=== PATIENT | female | born 1955 | race Caucasian/White ===

== ENCOUNTER → 2016-06-21 | Outpatient (CLI) | payer MEDICAID, OTHER ==
[2016-06-21 08:31] LABS: ANION GAP 12 MEQ/L (8-16); BLOOD UREA NITROGEN 14 MG/DL (7-18); CALCIUM LEVEL 8.9 MG/DL (8.5-10.1); CARBON DIOXIDE LEVEL 24 MEQ/L (21-32); CHLORIDE LEVEL 106 MEQ/L (98-107); CHOLESTEROL LEVEL 180 MG/DL (<200); CREATININE FOR GFR 0.68 MG/DL (0.55-1.02); GLOMERULAR FILTRATION RATE > 60.0 (>51); GLUCOSE, FASTING 109 MG/DL (70-105); POTASSIUM SERUM 4.4 MEQ/L (3.5-5.1); SODIUM LEVEL 142 MEQ/L (136-145); TRIGLYCERIDES LEVEL 275 MG/DL (<150)
== END | disposition home or self-care (01) ==
LOC: M LAB 06:14
PROVIDERS: ATTEND Physician Assistant Medical
DX: E11.9 Type 2 diabetes mellitus without complications (principal); E78.2 Mixed hyperlipidemia

== ENCOUNTER → 2016-08-09 | Outpatient (CLI) | payer MEDICAID, OTHER ==
--- NOTE | 2016-08-13 23:19 | ECWPNPC ---
PATIENT NAME: VANGIE OJEDA : 1955 GENDER: FEMALE VISIT DATE: 08/09/2016 DISCHARGE DATE: 08/09/16 0947 VISIT LOCKED DATE TIME: PHYSICIAN: AUGIE GREGORY RESOURCE: AUGIE GREGORY REASON FOR APPOINTMENT 1. RIGHT HIP HISTORY OF PRESENT ILLNESS HISTORY OF PRESENT ILLNESS: PAIN THE PATIENT DESCRIBES THE PAIN... 60 YEAR OLD FEMALE PATIENT WITH HISTORY OF CHRONIC RIGHT HIP PAIN. PATIENT DESCRIBES THE PAIN STABBING IN THE BACK OF THE HIP AND IT COMES AND GOES WITH A PAIN SCORE OF 5/10 ON TODAY'S VISIT. PATIENT STATES THAT THE DAY GOES ON HER PAIN GET WORST. PATIENT RECEIVED A RIGHT HIP INJECTION ON 02/21/2017 AND STATES THAT SHE HAD REALLY GOOD PAIN RELIEF FOR ABOUT 4 MONTHS, BUT NOW THE PAIN IS SLOWLY RETURNING TO IT POST PROCEDURE LEVELS. PATIENT INQUIRED WHETHER SHE COULD GET ANOTHER ONE. PATIENT DENIES UNEXPLAINABLE WEIGHT LOSS, FEVER, CHILLS, NEW CHANGES ON HER URINARY OR BOWEL CONTROL. FALL RISK SCREENING: SCREENING :NO FALLS IN THE PAST YEAR CURRENT MEDICATIONS TAKING LISINOPRIL 40 MG TABLET 1 TABLET ORALLY ONCE A DAY TAKING HYDROCHLOROTHIAZIDE 25 MG TABLET 1 TABLET ORALLY ONCE A DAY TAKING TAMOXIFEN CITRATE 20 MG TABLET 1 TAB(S) ORALLY ONCE A DAY TAKING FISH OIL 1000 MG CAPSULE 1 CAPSULE ORALLY TWICE A DAY TAKING VITAMIN D 2000 UNIT TABLET 1 TABLET ORALLY ONCE A DAY TAKING METFORMIN HCL 1000 MG TABLET 1 TABLET WITH MEALS P.O. TWICE A DAY TAKING MELOXICAM 7.5 MG TABLET 2 TABLET ORALLY ONCE A DAY TAKING HYDROCODONE-ACETAMINOPHEN 325-5 MG TABLET 1 TABLET NEEDED ORALLY EVERY 6 HRS TAKING PRAVASTATIN 40 40MG TABLET 1 TAB ORAL ONCE DAILY TAKING ZOLOFT 50 MG TABLET 1 TABLET ORALLY ONCE A DAY DISCONTINUED ALEVE 200 MG TABLET 1 TABLET NEEDED P.O. EVERY 12 HRS MEDICATION LIST REVIEWED AND RECONCILED WITH THE PATIENT PAST MEDICAL HISTORY HYPERTENSION HYPERLIPIDEMIA SCIATICA/ SPINAL STENOSIS BREAST CA-INVASIVE DUCTAL, RIGHT BREAST, WITH NEG SENTINEL LYMPH NODE BX, 1.7.CM, NUCLEAR GR II, ER+STRONG, MT+STRONG, HER 2 FRANCHESKA NEG (1+), TX WITH RADIATION AND TAMOXIFEN ARTHRITIS OF KNEES ALLERGIES PENICILLIN (FOR ALLERGIES USE ONLY): HIVES: ALLERGY SURGICAL HISTORY BREAST LUMPECTOMY WITH SENTINEL LYMPH NODE BIOPSY, RADIATION 08/19 T & A CHOLECYSTECTOMY (LAP.) LEFT KNEE SURGERY (ARTHROSCOPY) LEFT BREAST NEEDLE BX, BENIGN 2012 COLONOSCOPY 2015 [address] MOHR 2014 FAMILY HISTORY NO FAMILY HISTORY DOCUMENTED. SOCIAL HISTORY GENERAL: TOBACCO USE ARE YOU A:NONSMOKER LEARNING BARRIERS / SPECIAL NEEDS ORIENTED TO PLAN OF CARE: PATIENT, PAIN MANAGEMENT PATIENT, ORIENTED TO PLAN OF CARE: PATIENT, PAIN MANAGEMENT PATIENT. NEW PATIENT PAIN DIARY TODAY'S VISITNOTES FROM 0-10, WHAT LEVEL IS YOUR PAIN TODAY?0 PAIN CLINIC PFS, CLERGY, PUBLIC HEALTH REFERRALS PFS REFERRAL NEEDED?NO CLERGY REFERRAL NEEDED?NO PUBLIC HEALTH REFERRAL NEEDED?NO WAS THE PROVIDER NOTIFIED OF ANY PERTINENT INFO?NO PFS REFERRAL NEEDED?NO CLERGY REFERRAL NEEDED?NO PUBLIC HEALTH REFERRAL NEEDED?NO WAS THE PROVIDER NOTIFIED OF ANY PERTINENT INFO?NO HOSPITALIZATION/MAJOR DIAGNOSTIC PROCEDURE NO HOSPITALIZATION HISTORY. REVIEW OF SYSTEMS CONSTITUTIONAL: ANY CHANGE IN YOUR MEDICAL CONDITION? NO . CHILLS NO . FEVER NO . INFECTION: DO YOU HAVE NEW INFECTIONS? NO . DO YOU HAVE HISTORY OF MRSA? NO . MUSCULOSKELETAL: ANY NEW PATTERNS OF PAIN OR NUMBNESS? NO . GASTROENTEROLOGY: ANY NEW CHANGE IN BOWEL CONTROL? NO . GENITOURINARY: ANY NEW CHANGE IN BLADDER CONTROL? NO . IS THERE A CHANCE YOU COULD BE ? NO . HEMATOLOGY/LYMPH: DO YOU TAKE ANY BLOOD THINNERS? (FOR EXAMPLE- COUMADIN, PLAVIX, AGGRENOX, PLATEL, PRADAXA, OR XARELTO) NO . WHEN WAS YOUR LAST DOSE? DATE: TIME: . NEUROLOGY: HAVE YOU FALLEN IN THE PAST 6 MONTHS? NO . ANY NEW EXTREMITY NUMBNESS OR WEAKNESS? NO . CARDIOLOGY: DO YOU HAVE A PACEMAKER OR DEFIBRILLATOR? NO . RESPIRATORY: HAVE YOU BEEN SICK IN THE PAST WEEK? NO . FEVER NO . FLU LIKE SYMPTOMS? NO . COUGH NO . INTEGUMENTARY: DO YOU HAVE ANY RASHES OR OPEN SORES? NO . ALLERGIC/IMMUNO: ARE YOU ALLERGIC TO SHELLFISH OR IV DYE? NO . ANY NEW ALLERGIES? NO . PSYCHIATRIC: DO YOU HAVE THOUGHTS OF HURTING YOURSELF OR SOMEONE ELSE? NO . ARE YOU ABUSED, NEGLECTED, OR IN AN UNSAFE ENVIRONMENT? NO . ENDOCRINOLOGY: ARE YOU DIABETIC? YES . OTHER: DO YOU NEED ANY PRESCRIPTIONS? NO . IF YES, PLEASE LIST: ____ . ANY NEW PROBLEMS WITH YOUR MEDICATIONS? NO . WHEN DID YOU LAST EAT? ____ . WHEN DID YOU LAST DRINK? ____ . WHAT DID YOU LAST DRINK? ____ . NAME OF PERSON DRIVING YOU HOME? ____ . DO YOU HAVE ANY OTHER QUESTIONS OR CONCERNS NO . REVIEWED BY: PROVIDER: AUGIE GREGORY MD . VITAL SIGNS WT 212 LBS, HT 65 IN, BMI 35.27 INDEX, BP 138/77 MM HG, HR 93 /MIN, RR 16 /MIN, TEMP 97.7 F, OXYGEN SAT % 99, NA INITIALS TL 0857, REVIEWED BY: VD. EXAMINATION : PATIENT IS ALERT O X 3 AND COOPERATIVE. PATIENT IS ANTALGIC. THERE IS PAIN AND TENDERNESS IN THE RIGHT HIP AREA. MRI OF THE RIGHT HIP DONE ON OCTOBER 31, 2015 IS SHOWING MULTIPLE OSTEOCARTILAGINOUS LOOSE BODIES AND MULTIFOCAL CARTILAGE LOSS. ASSESSMENTS UNILATERAL PRIMARY OSTEOARTHRITIS, RIGHT HIP - M16.11 (PRIMARY) TREATMENT UNILATERAL PRIMARY OSTEOARTHRITIS, RIGHT HIP NOTES: WE DISCUSSED SEVERAL ISSUES WITH MS. OJEDA'S PAIN MANAGEMENT CASE. DUE TO THE PAIN RETURNING AND WITH GOOD PAIN RELIEF FROM THE LAST PROCEDURE, PATIENT IS A GOOD CANDIDATE FOR ANOTHER RIGHT HIP INJECTION DUE TO OSTEOARTHRITIS ON THE RIGHT HIP. PATIENT WILL BE BOOKED PENDING APPROVAL. INSTRUCTIONS WERE GIVEN, QUESTIONS WERE ANSWERED, PATIENT REPORTS UNDERSTANDING AND AGREES WITH THE PLAN. I, TATA WALKER, DOCUMENTED THE ABOVE INFORMATION ACTING A SCRIBE FOR DR. GREGORY. I HAVE REVIEWED THE ABOVE DOCUMENT, WRITTEN BY TATA WALKER SCRIBJax AND I VERIFY THAT IT IS ACCURATE. PROCEDURE CODES FA211 ESTABILISHED PATIENT [facility] FACILITY CHARGE G8730 PAIN ASSESS POS TOOL F/U PLAN DOC G8427 DOC MEDS VERIFIED W/PT OR RE DISPOSITION & COMMUNICATION FOLLOW UP RIGHT HIP INJECTION PENDING APPROVAL ELECTRONICALLY SIGNED BY AUGIE GREGORY MD ON 08/13/2016 AT 04:03 PM EST DISCLAIMER : THIS IS A VISIT SUMMARY EXTRACTED FROM THE [employer] CHART. IT IS NOT A COPY OF THE [employer] PROGRESS NOTE. MTDD
== END ==
LOC: M PAIN 08:40
PROVIDERS: ATTEND Anesthesiology
DX: Z09 Encounter for follow-up examination after completed treatment for conditions other than malignant neoplasm (principal); G89.29 Other chronic pain; M16.11 Unilateral primary osteoarthritis, right hip; E11.9 Type 2 diabetes mellitus without complications; I10 Essential (primary) hypertension; E78.5 Hyperlipidemia, unspecified; M48.00 Spinal stenosis, site unspecified; Z88.0 Allergy status to penicillin; Z79.810 Long term (current) use of selective estrogen receptor modulators (SERMs); Z79.84 Long term (current) use of oral hypoglycemic drugs; Z79.891 Long term (current) use of opiate analgesic; Z79.899 Other long term (current) drug therapy; Z85.3 Personal history of malignant neoplasm of breast; Z92.3 Personal history of irradiation

== ENCOUNTER → 2016-08-22 | Outpatient (CLI) | payer MEDICAID ==
--- NOTE | 2016-08-22 11:12 | REPMRS ---
Patient History The patient states she had a clinical breast exam in May 2016.Patient is postmenopausal, has history of breast cancer at age 54, and is nulliparous. No known family history of cancer. Stereotatic Loc for ea Lesion of the left breast, August 25, 2011. Taking tamoxifen for 3 years. Digital Mammo Screening Bilat: August 22, 2016 - Exam #: [id number] Bilateral CC and MLO view(s) were taken. Technologist: Trini Walton, Technologist Prior study comparison: August 20, 2015, bilateral digital mammo screening bilat performed at [facility]. August 18, 2014, bilateral digital mammo screening bilat performed at [facility]. October 18, 2013, right breast digital mammo diagnostic unilateral performed at [facility]. FINDINGS: There are scattered fibroglandular densities. There has been no change in the appearance of the mammogram from the prior studies. There are stable post treatment changes in the right breast. There is a mild amount of scattered fibroglandular density which is fairly symmetric. There is no interval development of dominant mass, architectural distortion, or clustered microcalcification suggestive of malignancy. ASSESSMENT: BI-RADS/ACR category 1 mammogram. Negative. Recommendation Routine screening mammogram in 1 year (for women over age 40). This mammogram was interpreted with the aid of an FDA-approved computer-aided dectection system. Electronically Signed By: Jesus Huizar MD 08/22/16 [id number]
== END ==
LOC: M RAD 09:00
PROVIDERS: ATTEND Internal Medicine Medical Oncology
DX: Z12.31 Encounter for screening mammogram for malignant neoplasm of breast (principal); Z78.0 Asymptomatic menopausal state; Z85.3 Personal history of malignant neoplasm of breast; Z79.810 Long term (current) use of selective estrogen receptor modulators (SERMs)

== ENCOUNTER → 2016-09-12 | Outpatient (CLI) | payer MEDICAID, OTHER ==
[~2016-09-12] MED LIST: BUPIVACAINE HCL 0.25% 30 ML VIAL As Ordered ONE; ISOVUE-M 300 61% 15ML VIAL (Q9967) As Ordered ONE; LIDOCAINE 1% SDV INJ 30 ML VIAL As Ordered ONE; TRIAMCINOLONE ACETONIDE SUSP 40 MG/ML VIAL (J3301) As Ordered ONE
--- NOTE | 2016-09-12 10:28 | REP ---
LIMITED RIGHT HIP STUDY: Two views. HISTORY: Right hip injection for pain. 16 seconds of fluoroscopy time is reported. FINDINGS: A sequence of two fluoroscopically obtained last image hold spot radiographs of the right hip document needle position and contrast injection associated with hip injection procedure. Signed by Chito Huizar MD 09/13/2016 07:29 A
--- NOTE | 2016-09-23 00:29 | ECWPNPC ---
PATIENT NAME: VANGIE OJEDA : 1955 GENDER: FEMALE VISIT DATE: 09/12/2016 DISCHARGE DATE: 09/12/16 1000 VISIT LOCKED DATE TIME: PHYSICIAN: AUGIE GREGORY RESOURCE: AUGIE GREGORY REASON FOR APPOINTMENT 1. OSTEOARTHRITIS OF THE RIGHT HIP INJECTION HISTORY OF PRESENT ILLNESS HISTORY OF PRESENT ILLNESS: PAIN THE PATIENT DESCRIBES THE PAIN... FALL RISK SCREENING: SCREENING :NO FALLS IN THE PAST YEAR CURRENT MEDICATIONS TAKING LISINOPRIL 40 MG TABLET 1 TABLET ORALLY ONCE A DAY, NOTES: 09-12-16599 TAKING HYDROCHLOROTHIAZIDE 25 MG TABLET 1 TABLET ORALLY ONCE A DAY, NOTES: 09-12-16599 TAKING TAMOXIFEN CITRATE 20 MG TABLET 1 TAB(S) ORALLY ONCE A DAY, NOTES: 09-12-16599 TAKING FISH OIL 1000 MG CAPSULE 1 CAPSULE ORALLY TWICE A DAY, NOTES: 09-12-16599 TAKING VITAMIN D 2000 UNIT TABLET 1 TABLET ORALLY ONCE A DAY, NOTES: 09-12-16599 TAKING METFORMIN HCL 1000 MG TABLET 1 TABLET WITH MEALS P.O. TWICE A DAY, NOTES: 09-11-16 6PM TAKING MELOXICAM 7.5 MG TABLET 2 TABLET ORALLY ONCE A DAY, NOTES: 09-12-16599 TAKING HYDROCODONE-ACETAMINOPHEN 325-5 MG TABLET 1 TABLET NEEDED ORALLY EVERY 6 HRS, NOTES: 09-12-16599 TAKING PRAVASTATIN 40 40MG TABLET 1 TAB ORAL ONCE DAILY, NOTES: 09-11-16 6 PM TAKING ZOLOFT 50 MG TABLET 1 TABLET ORALLY ONCE A DAY, NOTES: 09-12-16599 MEDICATION LIST REVIEWED AND RECONCILED WITH THE PATIENT PAST MEDICAL HISTORY HYPERTENSION HYPERLIPIDEMIA SCIATICA/ SPINAL STENOSIS BREAST CA-INVASIVE DUCTAL, RIGHT BREAST, WITH NEG SENTINEL LYMPH NODE BX, 1.7.CM, NUCLEAR GR II, ER+STRONG, OR+STRONG, HER 2 FRANCHESKA NEG (1+), TX WITH RADIATION AND TAMOXIFEN ARTHRITIS OF KNEES ALLERGIES PENICILLIN (FOR ALLERGIES USE ONLY): HIVES: ALLERGY SOCIAL HISTORY GENERAL: PAIN CLINIC PFS, CLERGY, PUBLIC HEALTH REFERRALS CLERGY REFERRAL NEEDED?NO WAS THE PROVIDER NOTIFIED OF ANY PERTINENT INFO?NO PFS REFERRAL NEEDED?NO PUBLIC HEALTH REFERRAL NEEDED?NO PATIENT: ____. REVIEW OF SYSTEMS CONSTITUTIONAL: ANY CHANGE IN YOUR MEDICAL CONDITION? NO . CHILLS NO . FEVER NO . INFECTION: DO YOU HAVE NEW INFECTIONS? NO . DO YOU HAVE HISTORY OF MRSA? NO . MUSCULOSKELETAL: ANY NEW PATTERNS OF PAIN OR NUMBNESS? YES, WHEN WALKING SOMETIMES, FEELS LIKE SOME MOVEMENT IN THE HIP AND A SHARP PAIN MOMENTARILY, STOPS WALKIN G AND IT LETS UP . GASTROENTEROLOGY: ANY NEW CHANGE IN BOWEL CONTROL? NO . GENITOURINARY: ANY NEW CHANGE IN BLADDER CONTROL? NO . IS THERE A CHANCE YOU COULD BE ? NO . HEMATOLOGY/LYMPH: DO YOU TAKE ANY BLOOD THINNERS? (FOR EXAMPLE- COUMADIN, PLAVIX, AGGRENOX, PLATEL, PRADAXA, OR XARELTO) NO . WHEN WAS YOUR LAST DOSE? DATE: TIME: . NEUROLOGY: HAVE YOU FALLEN IN THE PAST 6 MONTHS? NO . ANY NEW EXTREMITY NUMBNESS OR WEAKNESS? NO . CARDIOLOGY: DO YOU HAVE A PACEMAKER OR DEFIBRILLATOR? NO . RESPIRATORY: HAVE YOU BEEN SICK IN THE PAST WEEK? NO . FEVER NO . FLU LIKE SYMPTOMS? NO . COUGH NO . INTEGUMENTARY: DO YOU HAVE ANY RASHES OR OPEN SORES? NO . ALLERGIC/IMMUNO: ARE YOU ALLERGIC TO SHELLFISH OR IV DYE? NO . ANY NEW ALLERGIES? NO . PSYCHIATRIC: DO YOU HAVE THOUGHTS OF HURTING YOURSELF OR SOMEONE ELSE? NO . ARE YOU ABUSED, NEGLECTED, OR IN AN UNSAFE ENVIRONMENT? NO . ENDOCRINOLOGY: ARE YOU DIABETIC? YES, FSBS= 125 @0600 . OTHER: DO YOU NEED ANY PRESCRIPTIONS? NO . IF YES, PLEASE LIST: ____ . ANY NEW PROBLEMS WITH YOUR MEDICATIONS? NO . WHEN DID YOU LAST EAT? 09/11/16 6 PM . WHEN DID YOU LAST DRINK? 09/12/16 0600 . WHAT DID YOU LAST DRINK? WATER . NAME OF PERSON DRIVING YOU HOME? JOHNSON . DO YOU HAVE ANY OTHER QUESTIONS OR CONCERNS NO . REVIEWED BY: PROVIDER: . VITAL SIGNS WT 210 LBS, HT 65 IN, BMI 34.94 INDEX, BP 118/79 MM HG, HR 88 /MIN, RR 16 /MIN, TEMP 98.0 F, OXYGEN SAT % 95%, NA INITIALS SC 0903, REVIEWED BY: CM. ASSESSMENTS UNILATERAL PRIMARY OSTEOARTHRITIS, RIGHT HIP - M16.11 (PRIMARY) PROCEDURES PREOPERATIVE DIAGNOSIS: RIGHT HIP OSTEOARTHRITIS. HIP PAINPOSTOPERATIVE DIAGNOSIS: RIGHT HIP OSTEOARTHRITIS. HIP PAINPROCEDURE: INJECTION OF THE RIGHT HIP JOINT UNDER FLUOROSCOPIC GUIDANCESURGEON: JONO BERNARDTHESIA: LOCALPREOPERATIVE NOTE: THE PATIENT HAS HISTORY OF RIGHT HIP PAIN. I EVALUATE THE PATIENT AND REVIEWED THE CHART. I WENT THROUGH THE RISK ALTERNATIVES AND BENEFITS ASSOCIATED WITH A HIP INJECTION WHICH INCLUDE INFECTIONS, NERVE DAMAGE INJECTION INSIDE OF A BLOOD VESSEL, CARDIOVASCULAR REST. PATIENT EXPRESSED THAT WILL LIKE TO PROCEED. THE PATIENT DENIES UNEXPLAINABLE WEIGHT LOSS FEVER CHILLS NEW CHANGES ON HER MEDICAL CONDITION.PROCEDURE NOTE: AFTER CONSENT WAS REVIEWED WITH THE PATIENT WAS BROUGHT TO THE PROCEDURE ROOM AND PLACED IN THE SUPINE POSITION. THE RIGHT INGUINAL AREA WAS CLEANED WITH CHLORAPREP SOLUTION AND DRAPED ASEPTICALLY. PROCEDURE WAS DONE UNDER STERILE CONDITIONS. UNDER FLUOROSCOPIC GUIDANCE A 22-GAUGE SPINAL NEEDLE WAS ADVANCED TO THE LATERAL ASPECT OF THE FEMORAL NECK. I PALPATE AND EVALUATE THE RIGHT INGUINAL AREA .THE POSITION OF THE FEMORAL ARTERY WAS IDENTIFIED. NEEDLE WAS ADVANCED UNDER FLUOROSCOPIC GUIDANCE. AFTER PROPER POSITION OF THE NEEDLE WAS ACHIEVED ISOVUE-M DYE 30% 0.25 ML WAS INJECTED SHOWING ADEQUATE SPREAD OF THE DYE. THEN A SOLUTION OF 3 ML OF BUPIVACAINE 0.125% AND KENALOG 40 MG WAS INJECTED SLOWLY FOLLOWING PATIENT FEEDBACK. THERE WAS NO EVIDENCE OF BLOOD, PARESTHESIA OR ANY OTHER COMPLICATION. PATIENT WAS SENT TO THE RECOVERY ROOM WHERE SHE WAS MOVING THE EXTREMITIES. THERE WERE NO COMPLICATIONS DURING THE PROCEDURE. FLUOROSCOPY TIME WAS 16 SECONDS. POSTOPERATIVE NOTE: PATIENT IS GOING TO BE SITTING IN A FOLLOW-UP. WE ARE LOOKING FOR LASTING PAIN RELIEF WITH THIS INTERVENTION. INSTRUCTIONS WERE GIVING, QUESTIONS WERE ANSWERED, THE PATIENT REPORTS UNDERSTANDING AND AGREES WITH THE PLAN. DIAGNOSTIC IMAGING [facility] FLUORO GUIDANCE (PAIN)[id number] PROCEDURE CODES 26490 DRAIN/INJ JOINT/[place] [address] NEEDLE LOCALIZATION BY XRAY 6045F RADXPS IN END [id number] PXD DISPOSITION & COMMUNICATION FOLLOW UP 3 WEEKS ELECTRONICALLY SIGNED BY AUGIE GREGORY MD ON 09/19/2016 AT 12:22 PM EDT DISCLAIMER : THIS IS A VISIT SUMMARY EXTRACTED FROM THE [employer] CHART. IT IS NOT A COPY OF THE [employer] PROGRESS NOTE. MTDD
== END ==
LOC: M PAIN 09:00
PROVIDERS: ATTEND Anesthesiology
DX: M16.11 Unilateral primary osteoarthritis, right hip (principal); I10 Essential (primary) hypertension; Z85.3 Personal history of malignant neoplasm of breast; M17.0 Bilateral primary osteoarthritis of knee; M54.40 Lumbago with sciatica, unspecified side; E11.9 Type 2 diabetes mellitus without complications; Z79.84 Long term (current) use of oral hypoglycemic drugs; Z79.891 Long term (current) use of opiate analgesic; Z79.899 Other long term (current) drug therapy; Z88.0 Allergy status to penicillin
CPT/HCPCS: 20610; 77002; J3301; Q9967

== ENCOUNTER → 2016-10-10 | Outpatient (CLI) | payer MEDICAID, OTHER ==
--- NOTE | 2016-10-19 02:33 | ECWPNPC ---
PATIENT NAME: VANGIE OJEDA : 1955 GENDER: FEMALE VISIT DATE: 10/10/2016 DISCHARGE DATE: 10/10/16 1414 VISIT LOCKED DATE TIME: PHYSICIAN: AUGIE GREGORY RESOURCE: AUGIE GREGORY REASON FOR APPOINTMENT 1. RIGHT HIP PAIN HISTORY OF PRESENT ILLNESS HISTORY OF PRESENT ILLNESS: PAIN THE PATIENT DESCRIBES THE PAIN... 60 YEAR OLD FEMALE PATIENT WITH HISTORY OF CHRONIC HIP PAIN. PATIENT DESCRIBES THE PAIN ACHING AND SORE WITH THE PAIN COMING AND GOING WITH A PAIN SCORE OF 1-2/10. PATIENT RECEIVED A RIGHT HIP JOINT INJECTION ON 09/12/16 AND REPORTS DOING VERY WELL. MRS. OJEDA STATES THAT THE PAIN HAS DECREASED BY OVER 50% AND HER FUNCTIONALITY AND MOBILITY HAS INCREASED. CURRENTLY PATIENT IS USING HYDROCODONE AND MELOXICAM NEEDED. PATIENT REPORTS THE MEDICATION KEEPS HER FUNCTIONAL. MRS. OJEDA STATES THAT WALKING INCREASES HER PAIN THE MOST AND THAT SHE IS A CANDIDATE FOR A HIP REPLACEMENT BUT WOULD LIKE TO HOLD FOR SURGERY LONG POSSIBLE. FALL RISK SCREENING: SCREENING :NO FALLS IN THE PAST YEAR CURRENT MEDICATIONS TAKING LISINOPRIL 40 MG TABLET 1 TABLET ORALLY ONCE A DAY, NOTES: 09-12-16599 TAKING HYDROCHLOROTHIAZIDE 25 MG TABLET 1 TABLET ORALLY ONCE A DAY, NOTES: 09-12-16599 TAKING TAMOXIFEN CITRATE 20 MG TABLET 1 TAB(S) ORALLY ONCE A DAY, NOTES: 09-12-16599 TAKING FISH OIL 1000 MG CAPSULE 1 CAPSULE ORALLY TWICE A DAY, NOTES: 09-12-16599 TAKING VITAMIN D 2000 UNIT TABLET 1 TABLET ORALLY ONCE A DAY, NOTES: 09-12-16599 TAKING METFORMIN HCL 1000 MG TABLET 1 TABLET WITH MEALS P.O. TWICE A DAY, NOTES: 09-11-16 6PM TAKING MELOXICAM 7.5 MG TABLET 2 TABLET ORALLY ONCE A DAY, NOTES: 09-12-16599 TAKING HYDROCODONE-ACETAMINOPHEN 325-5 MG TABLET 1 TABLET NEEDED ORALLY EVERY 6 HRS, NOTES: 09-12-16599 TAKING PRAVASTATIN 40 40MG TABLET 1 TAB ORAL ONCE DAILY, NOTES: 09-11-16 6 PM TAKING ZOLOFT 50 MG TABLET 1 TABLET ORALLY ONCE A DAY, NOTES: 09-12-16599 TAKING BACTRIM DS 800-160 MG TABLET 1 TABLET ORALLY TWICE A DAY MEDICATION LIST REVIEWED AND RECONCILED WITH THE PATIENT PAST MEDICAL HISTORY HYPERTENSION HYPERLIPIDEMIA SCIATICA/ SPINAL STENOSIS BREAST CA-INVASIVE DUCTAL, RIGHT BREAST, WITH NEG SENTINEL LYMPH NODE BX, 1.7.CM, NUCLEAR GR II, ER+STRONG, WA+STRONG, HER 2 FRANCHESKA NEG (1+), TX WITH RADIATION AND TAMOXIFEN ARTHRITIS OF KNEES ALLERGIES PENICILLIN (FOR ALLERGIES USE ONLY): HIVES: ALLERGY SURGICAL HISTORY BREAST LUMPECTOMY WITH SENTINEL LYMPH NODE BIOPSY, RADIATION 08/19 T & A CHOLECYSTECTOMY (LAP.) LEFT KNEE SURGERY (ARTHROSCOPY) LEFT BREAST NEEDLE BX, BENIGN 2011 COLONOSCOPY 2014 D[address]C [address] MOHR 2014 FAMILY HISTORY NO FAMILY HISTORY DOCUMENTED. SOCIAL HISTORY GENERAL: PAIN CLINIC PFS, CLERGY, PUBLIC HEALTH REFERRALS CLERGY REFERRAL NEEDED?NO WAS THE PROVIDER NOTIFIED OF ANY PERTINENT INFO?NO PFS REFERRAL NEEDED?NO PUBLIC HEALTH REFERRAL NEEDED?NO PATIENT: ____. HOSPITALIZATION/MAJOR DIAGNOSTIC PROCEDURE NO HOSPITALIZATION HISTORY. REVIEW OF SYSTEMS CONSTITUTIONAL: ANY CHANGE IN YOUR MEDICAL CONDITION? NO . CHILLS NO . FEVER NO . INFECTION: DO YOU HAVE NEW INFECTIONS? NO . DO YOU HAVE HISTORY OF MRSA? NO . MUSCULOSKELETAL: ANY NEW PATTERNS OF PAIN OR NUMBNESS? YES PT HAD INJECTION OF RIGHT HIP JOINT 09/12/16, PAIN HAS IMPROVED TO 1-2, INCREASES WITH ACTIVITY OR ON UNEVEN SURFACES. . GASTROENTEROLOGY: ANY NEW CHANGE IN BOWEL CONTROL? NO . GENITOURINARY: ANY NEW CHANGE IN BLADDER CONTROL? NO . IS THERE A CHANCE YOU COULD BE ? NO . HEMATOLOGY/LYMPH: DO YOU TAKE ANY BLOOD THINNERS? (FOR EXAMPLE- COUMADIN, PLAVIX, AGGRENOX, PLATEL, PRADAXA, OR XARELTO) NO . WHEN WAS YOUR LAST DOSE? DATE: TIME: . NEUROLOGY: HAVE YOU FALLEN IN THE PAST 6 MONTHS? NO . ANY NEW EXTREMITY NUMBNESS OR WEAKNESS? NO . CARDIOLOGY: DO YOU HAVE A PACEMAKER OR DEFIBRILLATOR? NO . RESPIRATORY: HAVE YOU BEEN SICK IN THE PAST WEEK? NO . FEVER NO . FLU LIKE SYMPTOMS? NO . COUGH NO . INTEGUMENTARY: DO YOU HAVE ANY RASHES OR OPEN SORES? NO . ALLERGIC/IMMUNO: ARE YOU ALLERGIC TO SHELLFISH OR IV DYE? NO . ANY NEW ALLERGIES? NO . PSYCHIATRIC: DO YOU HAVE THOUGHTS OF HURTING YOURSELF OR SOMEONE ELSE? NO . ARE YOU ABUSED, NEGLECTED, OR IN AN UNSAFE ENVIRONMENT? NO . ENDOCRINOLOGY: ARE YOU DIABETIC? NO . OTHER: DO YOU NEED ANY PRESCRIPTIONS? NO . IF YES, PLEASE LIST: ____ . ANY NEW PROBLEMS WITH YOUR MEDICATIONS? NO . WHEN DID YOU LAST EAT? ____ . WHEN DID YOU LAST DRINK? ____ . WHAT DID YOU LAST DRINK? ____ . NAME OF PERSON DRIVING YOU HOME? ____ . DO YOU HAVE ANY OTHER QUESTIONS OR CONCERNS NO . REVIEWED BY: PROVIDER: AUGIE GREGORY MD . VITAL SIGNS WT 211 LBS, HT 65 IN, BMI 35.11 INDEX, BP 108/66 MM HG, HR 88 /MIN, RR 16 /MIN, TEMP 98.2 F, OXYGEN SAT % 96%, BLOOD GLUCOSE LEVEL 140 THIS AM, SAFE IN ENV? (Y/N) YES, NA INITIALS AW 1309, REVIEWED BY: JAZZY. EXAMINATION : PATIENT IS ALERT O X 3 AND COOPERATIVE. PATIENT IS ANTALGIC. THERE IS PAIN AND TENDERNESS IN THE RIGHT HIP AREA. MRI OF THE RIGHT HIP DONE ON OCTOBER 31, 2015 IS SHOWING MULTIPLE OSTEOCARTILAGINOUS LOOSE BODIES AND MULTIFOCAL CARTILAGE LOSS. ASSESSMENTS UNILATERAL PRIMARY OSTEOARTHRITIS, RIGHT HIP - M16.11 (PRIMARY) TREATMENT OTHERS NOTES: WE DISCUSSED SEVERAL ISSUES WITH MRS. OJEDA'S PAIN MANAGEMENT CASE. AT THIS TIME THE PATIENT WILL CONTINUE WITH THE SAME MEDICATION REGIME BEFORE. PATIENT DENIES ABUSE OF MEDICATION, DENIES USE OF ILLEGAL SUBSTANCES, AND STATES THAT SHE IS ONLY USING THE MEDICATION FOR PAIN MANAGEMENT. AT THIS TIME DUE TO THE PATIENT HAVING ADEQUATE RESULTS FROM THE HIP INJECTION DONE ON 09/12/16 WE WILL NOT HOLD ANY INTERVENTIONS AT THIS TIME. PATIENTS WILL RETURN TO THE CLINIC IN 2 MONTHS BUT WAS ADVISED IF SHE NEEDS ANOTHER INJECTION PRIOR TO THE FOLLOW UP. INSTRUCTIONS WERE GIVEN, QUESTIONS WERE ANSWERED, PATIENT REPORTS UNDERSTANDING AND AGREES WITH THE PLAN. I, CHINO DALTON, DOCUMENTED THE ABOVE INFORMATION ACTING A SCRIBE FOR DR. GREGORY. I HAVE REVIEWED THE ABOVE DOCUMENT, WRITTEN BY CHINO COX AND I VERIFY THAT IT IS ACCURATE. PROCEDURE CODES FA211 ESTABILISHED PATIENT [facility] FACILITY CHARGE G8427 DOC MEDS VERIFIED W/PT OR RE I6019 PAIN ASSESS POS TOOL F/U PLAN DOC DISPOSITION & COMMUNICATION FOLLOW UP 3 MONTHS ELECTRONICALLY SIGNED BY AUGIE GREGORY MD ON 10/17/2016 AT 08:19 PM EDT DISCLAIMER : THIS IS A VISIT SUMMARY EXTRACTED FROM THE [employer] CHART. IT IS NOT A COPY OF THE [employer] PROGRESS NOTE. REYD
== END ==
LOC: M PAIN 13:00
PROVIDERS: ATTEND Anesthesiology
DX: G89.29 Other chronic pain (principal); M16.11 Unilateral primary osteoarthritis, right hip; I10 Essential (primary) hypertension; E78.5 Hyperlipidemia, unspecified; M17.0 Bilateral primary osteoarthritis of knee; Z88.0 Allergy status to penicillin; Z79.891 Long term (current) use of opiate analgesic; Z85.3 Personal history of malignant neoplasm of breast; Z92.3 Personal history of irradiation; Z79.899 Other long term (current) drug therapy; Z79.84 Long term (current) use of oral hypoglycemic drugs

== ENCOUNTER → 2016-12-14 | Outpatient (CLI) | payer MEDICAID, OTHER ==
--- NOTE | 2016-12-26 00:26 | ECWPNPC ---
PATIENT NAME: VANGIE OJEDA : 1955 GENDER: FEMALE VISIT DATE: 12/14/2016 DISCHARGE DATE: 12/14/16 1414 VISIT LOCKED DATE TIME: PHYSICIAN: AUGIE GREGORY RESOURCE: AUGIE GREGORY REASON FOR APPOINTMENT 1. HIP PAIN HISTORY OF PRESENT ILLNESS GENERAL: 60 YEAR OLD FEMALE PATIENT WITH HISTORY OF CHRONIC HIP PAIN. PATIENT DESCRIBES THE PAIN ACHING AND SORE WITH THE PAIN COMING AND GOING WITH A PAIN SCORE OF 2/10. PATIENT RECEIVED A RIGHT HIP JOINT INJECTION ON 09/12/16 AND REPORTS DOING VERY WELL STILL AT THIS TIME. MRS. OJEDA STATES THAT THE PAIN HAS DECREASED BY OVER 50% AND HER FUNCTIONALITY AND MOBILITY HAS INCREASED. CURRENTLY PATIENT IS USING HYDROCODONE AND MELOXICAM NEEDED FROM ANOTHER PROVIDER. PATIENT REPORTS THE MEDICATION KEEPS HER FUNCTIONAL. MRS. OJEDA STATES THAT WALKING INCREASES HER PAIN THE MOST AND THAT SHE IS A CANDIDATE FOR A HIP REPLACEMENT BUT WOULD LIKE TO HOLD FOR SURGERY LONG POSSIBLE. PATIENT DENIES UNEXPLAINABLE WEIGHT LOSS, FEVER, CHILLS, NEW CHANGES ON HER URINARY OR BOWEL CONTROL. HISTORY OF PRESENT ILLNESS: PAIN THE PATIENT DESCRIBES THE PAIN... FALL RISK SCREENING: SCREENING :NO FALLS IN THE PAST YEAR CURRENT MEDICATIONS TAKING LISINOPRIL 40 MG TABLET 1 TABLET ORALLY ONCE A DAY TAKING HYDROCHLOROTHIAZIDE 25 MG TABLET 1 TABLET ORALLY ONCE A DAY TAKING TAMOXIFEN CITRATE 20 MG TABLET 1 TAB(S) ORALLY ONCE A DAY TAKING FISH OIL 1000 MG CAPSULE 1 CAPSULE ORALLY TWICE A DAY TAKING VITAMIN D 2000 UNIT TABLET 1 TABLET ORALLY ONCE A DAY TAKING METFORMIN HCL 1000 MG TABLET 1 TABLET WITH MEALS P.O. TWICE A DAY TAKING MELOXICAM 7.5 MG TABLET 2 TABLET ORALLY ONCE A DAY TAKING HYDROCODONE-ACETAMINOPHEN 325-5 MG TABLET 1 TABLET NEEDED ORALLY EVERY 6 HRS TAKING PRAVASTATIN 40 40MG TABLET 1 TAB ORAL ONCE DAILY TAKING ZOLOFT 50 MG TABLET 1 TABLET ORALLY ONCE A DAY NOT-TAKING BACTRIM DS 800-160 MG TABLET 1 TABLET ORALLY TWICE A DAY MEDICATION LIST REVIEWED AND RECONCILED WITH THE PATIENT PAST MEDICAL HISTORY HYPERTENSION HYPERLIPIDEMIA SCIATICA/ SPINAL STENOSIS BREAST CA-INVASIVE DUCTAL, RIGHT BREAST, WITH NEG SENTINEL LYMPH NODE BX, 1.7.CM, NUCLEAR GR II, ER+STRONG, [place]+STRONG, HER 2 FRANCHESKA NEG (1+), [place] WITH RADIATION AND TAMOXIFEN ARTHRITIS OF KNEES ALLERGIES PENICILLIN (FOR ALLERGIES USE ONLY): HIVES: ALLERGY REVIEW OF SYSTEMS REVIEWED BY: PROVIDER: AUGIE GREGORY MD . CONSTITUTIONAL: ANY CHANGE IN YOUR MEDICAL CONDITION? NO . CHILLS NO . FEVER NO . INFECTION: DO YOU HAVE NEW INFECTIONS? NO . DO YOU HAVE HISTORY OF MRSA? NO . MUSCULOSKELETAL: ANY NEW PATTERNS OF PAIN OR NUMBNESS? NO . GASTROENTEROLOGY: ANY NEW CHANGE IN BOWEL CONTROL? NO . GENITOURINARY: ANY NEW CHANGE IN BLADDER CONTROL? NO . IS THERE A CHANCE YOU COULD BE ? NO . HEMATOLOGY/LYMPH: DO YOU TAKE ANY BLOOD THINNERS? (FOR EXAMPLE- COUMADIN, PLAVIX, AGGRENOX, PLATEL, PRADAXA, OR XARELTO) NO . WHEN WAS YOUR LAST DOSE? DATE: TIME: . NEUROLOGY: HAVE YOU FALLEN IN THE PAST 6 MONTHS? NO . ANY NEW EXTREMITY NUMBNESS OR WEAKNESS? NO . CARDIOLOGY: DO YOU HAVE A PACEMAKER OR DEFIBRILLATOR? NO . RESPIRATORY: HAVE YOU BEEN SICK IN THE PAST WEEK? NO . FEVER NO . FLU LIKE SYMPTOMS? NO . COUGH NO . INTEGUMENTARY: DO YOU HAVE ANY RASHES OR OPEN SORES? NO . ALLERGIC/IMMUNO: ARE YOU ALLERGIC TO SHELLFISH OR IV DYE? NO . ANY NEW ALLERGIES? NO . PSYCHIATRIC: DO YOU HAVE THOUGHTS OF HURTING YOURSELF OR SOMEONE ELSE? NO . ARE YOU ABUSED, NEGLECTED, OR IN AN UNSAFE ENVIRONMENT? NO . ENDOCRINOLOGY: ARE YOU DIABETIC? YES . OTHER: DO YOU NEED ANY PRESCRIPTIONS? NO . IF YES, PLEASE LIST: ____ . ANY NEW PROBLEMS WITH YOUR MEDICATIONS? NO . WHEN DID YOU LAST EAT? ____ . WHEN DID YOU LAST DRINK? ____ . WHAT DID YOU LAST DRINK? ____ . NAME OF PERSON DRIVING YOU HOME? ____ . DO YOU HAVE ANY OTHER QUESTIONS OR CONCERNS NO . VITAL SIGNS WT 211 LBS, HT 65 IN, BMI 35.11 INDEX, BP 136/66 MM HG, HR 96 /MIN, RR 16 /MIN, TEMP 99.1 F, OXYGEN SAT % 96%, NA INITIALS SC 13:15. EXAMINATION GENERAL: PATIENT IS ALERT O X 3 AND COOPERATIVE. PATIENT IS ANTALGIC. THERE IS PAIN AND TENDERNESS IN THE RIGHT HIP AREA. MRI OF THE RIGHT HIP DONE ON OCTOBER 31, 2015 IS SHOWING MULTIPLE OSTEOCARTILAGINOUS LOOSE BODIES AND MULTIFOCAL CARTILAGE LOSS. ASSESSMENTS UNILATERAL PRIMARY OSTEOARTHRITIS, RIGHT HIP - M16.11 (PRIMARY) TREATMENT UNILATERAL PRIMARY OSTEOARTHRITIS, RIGHT HIP NOTES: WE DISCUSSED SEVERAL ISSUES WITH MRS. OJEDA'S PAIN MANAGEMENT CASE. AT THIS TIME THE PATIENT WILL CONTINUE WITH THE SAME MEDICATION REGIME BEFORE. PATIENT DENIES ABUSE OF MEDICATION, DENIES USE OF ILLEGAL SUBSTANCES, AND STATES THAT SHE IS ONLY USING THE MEDICATION FOR PAIN MANAGEMENT. AT THIS TIME THE INJECTION DONE ON 09/12/16 IS STILL GIVING THE PATIENT OVER 50 PERCENT RELIEF FROM PAIN WITH INCREASED MOBILITY AND FUNCTIONALITY. NO INTERVENTIONS WILL BE HELD AT THIS TIME. PATIENT WILL RETURN TO THE CLINIC IN 6 WEEKS. INSTRUCTIONS WERE GIVEN, QUESTIONS WERE ANSWERED, PATIENT REPORTS UNDERSTANDING AND AGREES WITH THE PLAN. I, CHINO DALTON, DOCUMENTED THE ABOVE INFORMATION ACTING A SCRIBE FOR DR. GREGORY. I HAVE REVIEWED THE ABOVE DOCUMENT, WRITTEN BY CHINO COX AND I VERIFY THAT IT IS ACCURATE. PROCEDURE CODES FA211 ESTABILISHED PATIENT [facility] FACILITY CHARGE G8427 DOC MEDS VERIFIED W/PT OR RE G8730 PAIN ASSESS POS TOOL F/U PLAN DOC DISPOSITION & COMMUNICATION FOLLOW UP 6 WEEKS ELECTRONICALLY SIGNED BY AUGIE GREGORY MD ON 12/25/2016 AT 10:11 PM EDT DISCLAIMER : THIS IS A VISIT SUMMARY EXTRACTED FROM THE [employer] CHART. IT IS NOT A COPY OF THE [employer] PROGRESS NOTE. LINETTE
== END ==
LOC: M PAIN 13:00
PROVIDERS: ATTEND Anesthesiology
DX: G89.29 Other chronic pain (principal); M16.11 Unilateral primary osteoarthritis, right hip; I10 Essential (primary) hypertension; E78.5 Hyperlipidemia, unspecified; Z85.3 Personal history of malignant neoplasm of breast; M17.0 Bilateral primary osteoarthritis of knee; Z79.84 Long term (current) use of oral hypoglycemic drugs; Z79.891 Long term (current) use of opiate analgesic; Z79.899 Other long term (current) drug therapy

== ENCOUNTER → 2017-01-05 | Outpatient (CLI) | payer MEDICAID | LOC: M LAB 07:06 | PROVIDERS: ATTEND Physician Assistant Medical | DX: E11.9 Type 2 diabetes mellitus without complications (principal) ==

== ENCOUNTER → 2017-02-14 | Outpatient (CLI) | payer MEDICAID, OTHER ==
--- NOTE | 2017-02-15 03:02 | ECWPNPC ---
PATIENT NAME: VANGIE OJEDA : 1955 GENDER: FEMALE VISIT DATE: 02/14/2017 DISCHARGE DATE: 02/14/17 1020 VISIT LOCKED DATE TIME: PHYSICIAN: AUGIE GREGORY RESOURCE: AUGIE GREGORY REASON FOR APPOINTMENT 1. FOLLOW UP HIP PAIN HISTORY OF PRESENT ILLNESS HISTORY OF PRESENT ILLNESS: PAIN THE PATIENT DESCRIBES THE PAIN... 61 YEAR OLD FEMALE PATIENT WITH HISTORY OF CHRONIC HIP PAIN. PATIENT DESCRIBES THE PAIN SHARP, STABBING AND STATES THAT THE PAIN COMES AND GOES. PATIENT HAS A PAIN SCORE OF 7/10 AT TODAY'S VISIT. PATIENT RECEIVED A RIGHT HIP JOINT INJECTION ON 09/12/16 AND REPORTS THAT THE PAIN DECREASED BY OVER 50% AND HER FUNCTIONALITY AND MOBILITY INCREASED. MRS. OJEDA STATES THAT THE PAIN HAS RETURNED IN THE PAST MONTH AND IS CURRENTLY IN PAIN. CURRENTLY; THE PATIENT IS USING HYDROCODONE AND MELOXICAM NEEDED FROM ANOTHER PROVIDER. PATIENT IS ALSO TAKING IBUPROFEN AT NIGHT FOR THE PAIN TO TAKE THE EDGE OFF SO SHE CAN GET SOME SLEEP. PATIENT REPORTS THE MEDICATION KEEPS HER FUNCTIONAL. MRS. OJEDA STATES THAT WALKING INCREASES HER PAIN THE MOST AND THAT SHE IS A CANDIDATE FOR A HIP REPLACEMENT BUT WOULD LIKE TO HOLD FOR SURGERY LONG POSSIBLE. PATIENT DENIES UNEXPLAINABLE WEIGHT LOSS, FEVER, CHILLS, NEW CHANGES ON HER URINARY OR BOWEL CONTROL. FALL RISK SCREENING: SCREENING :NO FALLS IN THE PAST YEAR CURRENT MEDICATIONS TAKING LISINOPRIL 40 MG TABLET 1 TABLET ORALLY ONCE A DAY TAKING HYDROCHLOROTHIAZIDE 25 MG TABLET 1 TABLET ORALLY ONCE A DAY TAKING TAMOXIFEN CITRATE 20 MG TABLET 1 TAB(S) ORALLY ONCE A DAY TAKING FISH OIL 1000 MG CAPSULE 1 CAPSULE ORALLY TWICE A DAY TAKING VITAMIN D 2000 UNIT TABLET 1 TABLET ORALLY ONCE A DAY TAKING METFORMIN HCL 1000 MG TABLET 1 TABLET WITH MEALS P.O. TWICE A DAY TAKING MELOXICAM 7.5 MG TABLET 2 TABLET ORALLY ONCE A DAY TAKING HYDROCODONE-ACETAMINOPHEN 325-5 MG TABLET 1 TABLET NEEDED ORALLY EVERY 6 HRS TAKING PRAVASTATIN 40 40MG TABLET 1 TAB ORAL ONCE DAILY TAKING ZOLOFT 50 MG TABLET 1 TABLET ORALLY ONCE A DAY NOT-TAKING BACTRIM DS 800-160 MG TABLET 1 TABLET ORALLY TWICE A DAY MEDICATION LIST REVIEWED AND RECONCILED WITH THE PATIENT PAST MEDICAL HISTORY HYPERTENSION HYPERLIPIDEMIA SCIATICA/ SPINAL STENOSIS BREAST CA-INVASIVE DUCTAL, RIGHT BREAST, WITH NEG SENTINEL LYMPH NODE BX, 1.7.CM, NUCLEAR GR II, ER+STRONG, HI+STRONG, HER 2 FRANCHESKA NEG (1+), [place] WITH RADIATION AND TAMOXIFEN ARTHRITIS OF KNEES ALLERGIES PENICILLIN (FOR ALLERGIES USE ONLY): HIVES: ALLERGY SOCIAL HISTORY GENERAL: TOBACCO USE ARE YOU A:FORMER SMOKER QUIT 2008 HOW LONG HAS IT BEEN SINCE YOU LAST SMOKED?5-10 YEARS ALCOHOL SCREENING POINTS4 INTERPRETATIONPOSITIVE RECREATIONAL DRUG USE DRUG USE?NO CAFFEINE CAFFEINE USE?YES HOW OFTEN AND HOW MUCH? CUP COFFEE/DAY OCCUPATION: [employer]. DIET: REGULAR. EXERCISE: NO REGULAR EXERCISE. MARITAL STATUS: . OTHERS AT HOME: SPOUSE, OTHER NON-RELATIVE. PETS: 2 DOGS. RESTORATION [id number] YAZIDISM LANGUAGE LANGUAGES SPOKEN:HEBREW EDUCATION LEVEL OF EDUCATION:COLLEGE LEARNING BARRIERS / SPECIAL NEEDS BARRIERS TO LEARNING?NO HEARING IMPAIRED?YES HAS DIFF. HEARING WITH A LOT OF BACK GROUND NOICES VISION IMPAIRED?YES :CORRECTIVE LENSES COGNITIVELY IMPAIRED?NO READINESS TO LEARN?YES LEARNING PREFERENCES?NO LEARNING CAPABILITIES PRESENT?YES EMOTIONAL BARRIERS?NO SPECIAL DEVICES?NO SUB MASTER NEEDED?NO PAIN CLINIC PFS, CLERGY, PUBLIC HEALTH REFERRALS CLERGY REFERRAL NEEDED?NO WAS THE PROVIDER NOTIFIED OF ANY PERTINENT INFO?NO PFS REFERRAL NEEDED?NO PUBLIC HEALTH REFERRAL NEEDED?NO PATIENT: ____. ADVANCE DIRECTIVES HEALTH CARE PROXY?YES NAME OF HCP J[facility] CONTACT # FOR HCP [phone] DO YOU HAVE A COPY WITH YOU?NO ON FILE DO YOU HAVE A DNR?NO WOULD YOU LIKE MORE INFORMATION?NO LIVING WILL?NO WOULD YOU LIKE MORE INFORMATION?NO POWER OF ENVIRONMENTAL SCIENCE TECHNICIAN?NO WOULD YOU LIKE MORE INFORMATION?NO DOMESTIC VIOLENCE DO YOU FEEL SAFE IN YOUR ENVIRONMENT?YES REVIEW OF SYSTEMS REVIEWED BY: PROVIDER: AUGIE GREGORY MD . CONSTITUTIONAL: ANY CHANGE IN YOUR MEDICAL CONDITION? NO . CHILLS NO . FEVER NO . INFECTION: DO YOU HAVE NEW INFECTIONS? NO . DO YOU HAVE HISTORY OF MRSA? NO . MUSCULOSKELETAL: ANY NEW PATTERNS OF PAIN OR NUMBNESS? NO . GASTROENTEROLOGY: ANY NEW CHANGE IN BOWEL CONTROL? NO . GENITOURINARY: ANY NEW CHANGE IN BLADDER CONTROL? NO . IS THERE A CHANCE YOU COULD BE ? NO . HEMATOLOGY/LYMPH: DO YOU TAKE ANY BLOOD THINNERS? (FOR EXAMPLE- COUMADIN, PLAVIX, AGGRENOX, PLATEL, PRADAXA, OR XARELTO) NO . WHEN WAS YOUR LAST DOSE? DATE: TIME: . NEUROLOGY: HAVE YOU FALLEN IN THE PAST 6 MONTHS? NO . ANY NEW EXTREMITY NUMBNESS OR WEAKNESS? NO . CARDIOLOGY: DO YOU HAVE A PACEMAKER OR DEFIBRILLATOR? NO . RESPIRATORY: HAVE YOU BEEN SICK IN THE PAST WEEK? NO . FEVER NO . FLU LIKE SYMPTOMS? NO . COUGH NO . INTEGUMENTARY: DO YOU HAVE ANY RASHES OR OPEN SORES? NO . ALLERGIC/IMMUNO: ARE YOU ALLERGIC TO SHELLFISH OR IV DYE? NO . ANY NEW ALLERGIES? NO . PSYCHIATRIC: DO YOU HAVE THOUGHTS OF HURTING YOURSELF OR SOMEONE ELSE? NO . ARE YOU ABUSED, NEGLECTED, OR IN AN UNSAFE ENVIRONMENT? NO . ENDOCRINOLOGY: ARE YOU DIABETIC? YES . OTHER: DO YOU NEED ANY PRESCRIPTIONS? NO . IF YES, PLEASE LIST: ____ . ANY NEW PROBLEMS WITH YOUR MEDICATIONS? NO . WHEN DID YOU LAST EAT? ____ . WHEN DID YOU LAST DRINK? ____ . WHAT DID YOU LAST DRINK? ____ . NAME OF PERSON DRIVING YOU HOME? ____ . DO YOU HAVE ANY OTHER QUESTIONS OR CONCERNS NO . VITAL SIGNS WT 211 LBS, HT 65 IN, BMI 35.11 INDEX, BP 118/65 MM HG, HR 101 /MIN, RR 16 /MIN, TEMP 97.3 F, OXYGEN SAT % 96, REVIEWED BY: AD. EXAMINATION : PATIENT IS ALERT O X 3 AND COOPERATIVE. PATIENT IS SEEN LIMPING FROM THE RIGHT HIP AREA. THERE IS PAIN AND TENDERNESS IN THE RIGHT HIP AREA. PATIENTS RIGHT LEG IS WEAKER THAN HER LEFT LEG WITH EXTENSION AND FLEXION. MRI OF THE RIGHT HIP DONE ON OCTOBER 31, 2015 IS SHOWING MULTIPLE OSTEOCARTILAGINOUS LOOSE BODIES AND MULTIFOCAL CARTILAGE LOSS. ASSESSMENTS UNILATERAL PRIMARY OSTEOARTHRITIS, RIGHT HIP - M16.11 (PRIMARY) TREATMENT UNILATERAL PRIMARY OSTEOARTHRITIS, RIGHT HIP CLINICAL NOTES: WE DISCUSSED SEVERAL ISSUES WITH MRS. OJEDA'S PAIN MANAGEMENT CASE. THE PATIENT IS RECEIVING HER MEDICATIONS FROM HER PRIMARY CARE PROVIDER. THE PATIENT IS SCHEDULED FOR A RIGHT HIP INJECTION ON AT 8:30 IN THE MORNING. MRS. OJEDA WILL FOLLOW UP WITH ME IN 2 MONTHS TO SEE HOW THE INJECTION IS WORKING FOR HER. INSTRUCTIONS WERE GIVEN, QUESTIONS WERE ANSWERED, PATIENT REPORTS UNDERSTANDING AND AGREES WITH THE PLAN. I, YOANDY LIVINGSTON, DOCUMENTED THE ABOVE INFORMATION ACTING A SCRIBE FOR DR. GREGORY. I HAVE REVIEWED THE ABOVE DOCUMENT, WRITTEN BY YOANDY COX AND I VERIFY THAT IT IS ACCURATE. PREVENTIVE MEDICINE PAIN CLINIC TEACHING: PROCEDURE TEACHING PT DECLINED PRINTED INFORMATION ON HIP INJECTION STATING SHE HAS HAD THEM IN THE PAST AND IS FAMILIAR WITH THE PROCEDURE. PRE-PROCEDURE INSTRUCTIONS RECIEWED WITH PT. AND SHE VERBALIZED UNDERSTANDING. AD. PROCEDURE CODES FA211 ESTABILISHED PATIENT [facility] CHARGE 92161 OFFICE/OUTPATIENT VISIT EST G8730 PAIN ASSESS POS TOOL F/U PLAN DOC G8427 DOC MEDS VERIFIED W/PT OR RE DISPOSITION & COMMUNICATION FOLLOW UP 2 MONTHS ELECTRONICALLY SIGNED BY AUGIE GREGORY MD ON 02/14/2017 AT 10:38 AM EDT DISCLAIMER : THIS IS A VISIT SUMMARY EXTRACTED FROM THE [employer] CHART. IT IS NOT A COPY OF THE [employer] PROGRESS NOTE. LINETTE
== END ==
LOC: M PAIN 08:30
PROVIDERS: ATTEND Anesthesiology
DX: G89.29 Other chronic pain (principal); M16.11 Unilateral primary osteoarthritis, right hip; I10 Essential (primary) hypertension; E78.5 Hyperlipidemia, unspecified; Z85.3 Personal history of malignant neoplasm of breast; Z92.3 Personal history of irradiation; M17.0 Bilateral primary osteoarthritis of knee; Z87.891 Personal history of nicotine dependence; Z88.0 Allergy status to penicillin; Z79.84 Long term (current) use of oral hypoglycemic drugs; Z79.899 Other long term (current) drug therapy; E11.9 Type 2 diabetes mellitus without complications

== ENCOUNTER → 2017-02-27 | Outpatient (CLI) | payer MEDICAID, OTHER ==
--- NOTE | 2017-02-27 11:49 | REP ---
Partial right hip series: Two views. History: Right hip injection for pain. 21 seconds of fluoroscopy time is reported. Findings: A sequence of two last image hold fluoroscopic spot radiographs of the right hip document needle position and contrast injection associated with injection procedure. Signed by Chito Huizar MD 02/27/2017 12:16 P
--- NOTE | 2017-02-28 00:43 | ECWPNPC ---
PATIENT NAME: VANGIE OJEDA : 1955 GENDER: FEMALE VISIT DATE: 02/27/2017 DISCHARGE DATE: 02/27/17 1533 VISIT LOCKED DATE TIME: PHYSICIAN: AUGIE GREGORY RESOURCE: AUGIE GREGORY REASON FOR APPOINTMENT 1. RT HIP INJECTION HISTORY OF PRESENT ILLNESS HISTORY OF PRESENT ILLNESS: PAIN THE PATIENT DESCRIBES THE PAIN... FALL RISK SCREENING: SCREENING :NO FALLS IN THE PAST YEAR CURRENT MEDICATIONS TAKING LISINOPRIL 40 MG TABLET 1 TABLET ORALLY ONCE A DAY, NOTES: 02/27/17529 TAKING HYDROCHLOROTHIAZIDE 25 MG TABLET 1 TABLET ORALLY ONCE A DAY, NOTES: 02/27/17529 TAKING TAMOXIFEN CITRATE 20 MG TABLET 1 TAB(S) ORALLY ONCE A DAY, NOTES: 02/27/17529 TAKING FISH OIL 1000 MG CAPSULE 1 CAPSULE ORALLY TWICE A DAY, NOTES: 02/27/17529 TAKING VITAMIN D 2000 UNIT TABLET 1 TABLET ORALLY ONCE A DAY, NOTES: 02/27/17529 TAKING METFORMIN HCL 1000 MG TABLET 1 TABLET WITH MEALS P.O. TWICE A DAY, NOTES: 02/26/17 1800 TAKING MELOXICAM 7.5 MG TABLET 2 TABLET ORALLY ONCE A DAY, NOTES: 02/27/17529 TAKING HYDROCODONE-ACETAMINOPHEN 325-5 MG TABLET 1 TABLET NEEDED ORALLY EVERY 6 HRS, NOTES: 02/27/17529 TAKING PRAVASTATIN 40 40MG TABLET 1 TAB ORAL ONCE DAILY, NOTES: 02/26/17 1800 TAKING ZOLOFT 50 MG TABLET 1 TABLET ORALLY ONCE A DAY, NOTES: 02/27/17529 NOT-TAKING BACTRIM DS 800-160 MG TABLET 1 TABLET ORALLY TWICE A DAY MEDICATION LIST REVIEWED AND RECONCILED WITH THE PATIENT PAST MEDICAL HISTORY HYPERTENSION HYPERLIPIDEMIA SCIATICA/ SPINAL STENOSIS BREAST CA-INVASIVE DUCTAL, RIGHT BREAST, WITH NEG SENTINEL LYMPH NODE BX, 1.7.CM, NUCLEAR GR II, ER+STRONG, [place]+STRONG, HER 2 FRANCHESKA NEG (1+), [place] WITH RADIATION AND TAMOXIFEN ARTHRITIS OF KNEES ALLERGIES PENICILLIN (FOR ALLERGIES USE ONLY): HIVES: ALLERGY SURGICAL HISTORY BREAST LUMPECTOMY WITH SENTINEL LYMPH NODE BIOPSY, RADIATION 08/19 T & A CHOLECYSTECTOMY (LAP.) LEFT KNEE SURGERY (ARTHROSCOPY) LEFT BREAST NEEDLE BX, BENIGN 2011 COLONOSCOPY [address] MOHR 2014 SOCIAL HISTORY GENERAL: TOBACCO USE ARE YOU A:FORMER SMOKER QUIT 2008 HOW LONG HAS IT BEEN SINCE YOU LAST SMOKED?5-10 YEARS ALCOHOL SCREENING DID YOU HAVE A DRINK CONTAINING ALCOHOL IN THE PAST YEAR?YES HOW OFTEN DID YOU HAVE A DRINK CONTAINING ALCOHOL IN THE PAST YEAR?TWO TO FOUR TIMES A MONTH (2 POINTS) HOW MANY DRINKS DID YOU HAVE ON A TYPICAL DAY WHEN YOU WERE DRINKING IN THE PAST YEAR?3 OR 4 (1 POINT) HOW OFTEN DID YOU HAVE SIX OR MORE DRINKS ON ONE OCCASION IN THE PAST YEAR?LESS THAN MONTHLY (1 POINT) POINTS4 INTERPRETATIONPOSITIVE RECREATIONAL DRUG USE DRUG USE?NO CAFFEINE CAFFEINE USE?YES HOW OFTEN AND HOW MUCH? CUP COFFEE/DAY OCCUPATION: [employer]. DIET: REGULAR. EXERCISE: NO REGULAR EXERCISE. MARITAL STATUS: . OTHERS AT HOME: SPOUSE, OTHER NON-RELATIVE. PETS: 2 DOGS. HOLINESS [id number] [employer]Y LANGUAGE LANGUAGES SPOKEN:[place] EDUCATION LEVEL OF EDUCATION:COLLEGE LEARNING BARRIERS / SPECIAL NEEDS BARRIERS TO LEARNING?NO HEARING IMPAIRED?YES HAS DIFF. HEARING WITH A LOT OF BACK GROUND NOICES VISION IMPAIRED?YES :CORRECTIVE LENSES COGNITIVELY IMPAIRED?NO READINESS TO LEARN?YES LEARNING PREFERENCES?NO LEARNING CAPABILITIES PRESENT?YES EMOTIONAL BARRIERS?NO SPECIAL DEVICES?NO CARTON WRAPPER NEEDED?NO PAIN CLINIC PFS, CLERGY, PUBLIC HEALTH REFERRALS PFS REFERRAL NEEDED?NO CLERGY REFERRAL NEEDED?NO PUBLIC HEALTH REFERRAL NEEDED?NO WAS THE PROVIDER NOTIFIED OF ANY PERTINENT INFO?NO HAS THE PATIENT BEEN EDUCATED REGARDING HIS/HER PLAN OF CARE?YES HAS THE PATIENT BEEN EDUCATED REGARDING PAIN, THE RISK FOR PAIN, THE IMPORTANCE OF EFFECTIVE PAIN MANAGEMENT, AND THE PAIN ASSESSMENT PROCESS?YES PATIENT: ____. ADVANCE DIRECTIVES HEALTH CARE PROXY?YES NAME OF HCP JOHNSON L[facility]Z CONTACT # FOR HCP [phone] DO YOU HAVE A COPY WITH YOU?NO ON FILE DO YOU HAVE A DNR?NO WOULD YOU LIKE MORE INFORMATION?NO LIVING WILL?NO WOULD YOU LIKE MORE INFORMATION?NO POWER OF MEDICARE COORDINATOR?NO WOULD YOU LIKE MORE INFORMATION?NO DOMESTIC VIOLENCE DO YOU FEEL SAFE IN YOUR ENVIRONMENT?YES HOSPITALIZATION/MAJOR DIAGNOSTIC PROCEDURE TONSILLECTOMY REVIEW OF SYSTEMS REVIEWED BY: PROVIDER: . CONSTITUTIONAL: ANY CHANGE IN YOUR MEDICAL CONDITION? NO . CHILLS NO . FEVER NO . INFECTION: DO YOU HAVE NEW INFECTIONS? NO . DO YOU HAVE HISTORY OF MRSA? NO . MUSCULOSKELETAL: ANY NEW PATTERNS OF PAIN OR NUMBNESS? NO . GASTROENTEROLOGY: ANY NEW CHANGE IN BOWEL CONTROL? NO . GENITOURINARY: ANY NEW CHANGE IN BLADDER CONTROL? NO . IS THERE A CHANCE YOU COULD BE ? NO . HEMATOLOGY/LYMPH: DO YOU TAKE ANY BLOOD THINNERS? (FOR EXAMPLE- COUMADIN, PLAVIX, AGGRENOX, PLATEL, PRADAXA, OR XARELTO) NO . WHEN WAS YOUR LAST DOSE? DATE: TIME: . NEUROLOGY: HAVE YOU FALLEN IN THE PAST 6 MONTHS? NO . ANY NEW EXTREMITY NUMBNESS OR WEAKNESS? NO . CARDIOLOGY: DO YOU HAVE A PACEMAKER OR DEFIBRILLATOR? NO . RESPIRATORY: HAVE YOU BEEN SICK IN THE PAST WEEK? NO . FEVER NO . FLU LIKE SYMPTOMS? NO . COUGH NO . INTEGUMENTARY: DO YOU HAVE ANY RASHES OR OPEN SORES? NO . ALLERGIC/IMMUNO: ARE YOU ALLERGIC TO SHELLFISH OR IV DYE? NO . ANY NEW ALLERGIES? NO . PSYCHIATRIC: DO YOU HAVE THOUGHTS OF HURTING YOURSELF OR SOMEONE ELSE? NO . ARE YOU ABUSED, NEGLECTED, OR IN AN UNSAFE ENVIRONMENT? NO . ENDOCRINOLOGY: ARE YOU DIABETIC? YES . OTHER: DO YOU NEED ANY PRESCRIPTIONS? NO . IF YES, PLEASE LIST: ____ . ANY NEW PROBLEMS WITH YOUR MEDICATIONS? NO . WHEN DID YOU LAST EAT? 02/26/17 1900 . WHEN DID YOU LAST DRINK? 0500 . WHAT DID YOU LAST DRINK? WATER WITH MEDICATIONS . NAME OF PERSON DRIVING YOU HOME? JOHNSON LÓPEZ . DO YOU HAVE ANY OTHER QUESTIONS OR CONCERNS NO . VITAL SIGNS WT 215 LBS, HT 65 IN, BMI 35.77 INDEX, BP 116/69 MM HG, HR 86 /MIN, RR 18 /MIN, TEMP 97.8 F, OXYGEN SAT % 96%, NA INITIALS WI 09:01, REVIEWED BY: STACY. ASSESSMENTS UNILATERAL PRIMARY OSTEOARTHRITIS, LEFT HIP - M16.12 (PRIMARY) TREATMENT UNILATERAL PRIMARY OSTEOARTHRITIS, LEFT HIP NOTES: PREOPERATIVE DIAGNOSIS: LEFTT HIP OSTEOARTHRITIS. HIP PAINPOSTOPERATIVE DIAGNOSIS: LEFT HIP OSTEOARTHRITIS. HIP PAINPROCEDURE: INJECTION OF THE LEFTT HIP JOINT UNDER FLUOROSCOPIC GUIDANCESURGEON: AUGIE HANKS MDANESTHESIA: LOCALPREOPERATIVE NOTE: THE PATIENT HAS HISTORY OF LEFT HIP PAIN. I EVALUATE THE PATIENT AND REVIEWED THE CHART. I WENT THROUGH THE RISK ALTERNATIVES AND BENEFITS ASSOCIATED WITH A HIP INJECTION WHICH INCLUDE INFECTIONS, NERVE DAMAGE INJECTION INSIDE OF A BLOOD VESSEL, CARDIOVASCULAR REST. PATIENT EXPRESSED THAT WILL LIKE TO PROCEED. THE PATIENT DENIES UNEXPLAINABLE WEIGHT LOSS FEVER CHILLS NEW CHANGES ON HER MEDICAL CONDITION.PROCEDURE NOTE: AFTER CONSENT WAS REVIEWED WITH THE PATIENT WAS BROUGHT TO THE PROCEDURE ROOM AND PLACED IN THE SUPINE POSITION. THE LEFT INGUINAL AREA WAS CLEANED WITH CHLORAPREP SOLUTION AND DRAPED ASEPTICALLY. PROCEDURE WAS DONE UNDER STERILE CONDITIONS. UNDER FLUOROSCOPIC GUIDANCE A 22-GAUGE SPINAL NEEDLE WAS ADVANCED TO THE LATERAL ASPECT OF THE FEMORAL NECK. I PALPATE AND EVALUATE THE RIGHT INGUINAL AREA .THE POSITION OF THE FEMORAL ARTERY WAS IDENTIFIED. NEEDLE WAS ADVANCED UNDER FLUOROSCOPIC GUIDANCE. AFTER PROPER POSITION OF THE NEEDLE WAS ACHIEVED ISOVUE-M DYE 30% 0.25 ML WAS INJECTED SHOWING ADEQUATE SPREAD OF THE DYE. THEN A SOLUTION OF 3 ML OF BUPIVACAINE 0.125% AND KENALOG 40 MG WAS INJECTED SLOWLY FOLLOWING PATIENT FEEDBACK. THERE WAS NO EVIDENCE OF BLOOD, PARESTHESIA OR ANY OTHER COMPLICATION. PATIENT WAS SENT TO THE RECOVERY ROOM WHERE SHE WAS MOVING THE EXTREMITIES. THERE WERE NO COMPLICATIONS DURING THE PROCEDURE. FLUOROSCOPY TIME WAS 21 SECONDS. POSTOPERATIVE NOTE: PATIENT IS GOING TO BE SITTING IN A FOLLOW-UP. WE ARE LOOKING FOR LASTING PAIN RELIEF WITH THIS INTERVENTION. INSTRUCTIONS WERE GIVING, QUESTIONS WERE ANSWERED, THE PATIENT REPORTS UNDERSTANDING AND AGREES WITH THE PLAN.I, CHINO DALTON, DOCUMENTED THE ABOVE INFORMATION ACTING A SCRIBE FOR DR. GREGORY. I HAVE REVIEWED THE ABOVE DOCUMENT, WRITTEN BY CHINO COX AND I VERIFY THAT IT IS ACCURATE. DIAGNOSTIC IMAGING [facility] FLUORO GUIDANCE (PAIN)[id number] PROCEDURE CODES 93223 DRAIN/INJ JOINT/BURSA W/O US 6045F RADXPS IN END [id number] PXD [id number] NEEDLE LOCALIZATION BY XRAY DISPOSITION & COMMUNICATION FOLLOW UP 3 WEEKS ELECTRONICALLY SIGNED BY AUGIE GREGORY MD ON 02/27/2017 AT 06:24 PM EDT DISCLAIMER : THIS IS A VISIT SUMMARY EXTRACTED FROM THE [facility] CHART. IT IS NOT A COPY OF THE [facility] PROGRESS NOTE. MTDD
== END ==
LOC: M PAIN 08:30
PROVIDERS: ATTEND Anesthesiology
DX: G89.29 Other chronic pain (principal); M16.12 Unilateral primary osteoarthritis, left hip; I10 Essential (primary) hypertension; E78.5 Hyperlipidemia, unspecified; M17.0 Bilateral primary osteoarthritis of knee; Z85.3 Personal history of malignant neoplasm of breast; Z87.891 Personal history of nicotine dependence; Z79.84 Long term (current) use of oral hypoglycemic drugs; Z79.899 Other long term (current) drug therapy; Z79.891 Long term (current) use of opiate analgesic; Z88.0 Allergy status to penicillin
CPT/HCPCS: 20610; J3301; Q9967

== ENCOUNTER → 2017-03-08 | Outpatient (REF) | payer MEDICAID, OTHER | LOC: M SFHCWAGY 10:16 | PROVIDERS: ATTEND Nurse Practitioner Women's Health | DX: Z12.4 Encounter for screening for malignant neoplasm of cervix (principal) ==

== ENCOUNTER → 2017-04-10 | Outpatient (CLI) | payer MEDICAID, OTHER | LOC: M PAIN 08:30 | PROVIDERS: ATTEND Anesthesiology | DX: M16.11 Unilateral primary osteoarthritis, right hip (principal); G89.29 Other chronic pain; I10 Essential (primary) hypertension; E78.5 Hyperlipidemia, unspecified; Z79.891 Long term (current) use of opiate analgesic; Z79.899 Other long term (current) drug therapy; Z79.84 Long term (current) use of oral hypoglycemic drugs; Z85.3 Personal history of malignant neoplasm of breast; Z88.0 Allergy status to penicillin ==

== ENCOUNTER → 2017-04-24 | Outpatient (CLI) | payer MEDICAID ==
[2017-04-24 14:18] LABS: ANION GAP 9 MEQ/L (8-16); BLOOD UREA NITROGEN 15 MG/DL (7-18); CALCIUM LEVEL 9.2 MG/DL (8.5-10.1); CARBON DIOXIDE LEVEL 27 MEQ/L (21-32); CHLORIDE LEVEL 104 MEQ/L (98-107); CHOLESTEROL LEVEL 206 MG/DL (<200); CREATININE FOR GFR 0.66 MG/DL (0.55-1.02); GLOMERULAR FILTRATION RATE > 60.0 (>51); GLUCOSE, FASTING 84 MG/DL (70-105); SODIUM LEVEL 140 MEQ/L (136-145); TRIGLYCERIDES LEVEL 355 MG/DL (<150)
== END ==
LOC: M LAB 12:19
PROVIDERS: ATTEND Internal Medicine Endocrinology, Diabetes & Metabolism
DX: E11.9 Type 2 diabetes mellitus without complications (principal); E78.2 Mixed hyperlipidemia

== ENCOUNTER → 2017-08-21 | Outpatient (CLI) | payer MEDICAID ==
[2017-08-21 18:04] LABS: ESTIMATED AVERAGE GLUCOSE 134 MG/DL (60-110); HEMOGLOBIN A1c 6.3 %
[2017-08-21 18:11] LABS: FERRITIN 114 NG/ML (8-252); IRON (FE) 83 UG/DL (50-170); PERCENT SATURATION 18.6 % (13.2-45.0); TOTAL IRON BINDING CAPACITY 446 UG/DL (250-450)
[2017-08-21 18:11] LABS: ALBUMIN 3.6 GM/DL (3.2-5.2)
[2017-08-21 19:02] LABS: BASO # 0.1 10^3/uL (0.0-0.2); BASO % 1.2 % (0.0-1.0); EOS # 0.3 10^3/uL (0.0-0.50); HEMOGLOBIN 12.3 g/dl (12.0-16.0); IMMATURE GRANULOCYTE % 0.4 % (0-3.0); LYMPH # 2.8 10^3/uL (1.5-4.5); LYMPH % 33.8 % (24.0-44.0); MEAN CORPUSCULAR HEMOGLOBIN 29.5 pg (27.0-33.0); MEAN CORPUSCULAR HGB CONC 33.2 g/dl (32.0-36.5); MEAN CORPUSCULAR VOLUME 88.7 fl (80.0-96.0); MONO # 0.6 10^3/uL (0.0-0.8); MONO % 7.3 % (0.0-5.0); NEUTROPHILS # 4.4 10^3/uL (1.8-7.7); NEUTROPHILS % 53.3 % (36.0-66.0); PLATELET COUNT, AUTOMATED 240 10^3/uL (150-450); RED BLOOD COUNT 4.17 10^6/uL (4.00-5.40); RED CELL DISTRIBUTION WIDTH 12.8 % (11.5-14.5); WHITE BLOOD COUNT 8.2 10^3/uL (4.0-10.0)
== END ==
LOC: M LAB 16:06
DX: Z01.818 Encounter for other preprocedural examination (principal); M16.11 Unilateral primary osteoarthritis, right hip; D63.8 Anemia in other chronic diseases classified elsewhere; M25.551 Pain in right hip; Z86.39 Personal history of other endocrine, nutritional and metabolic disease
CPT/HCPCS: 82040

== ENCOUNTER → 2017-08-22 | Outpatient (CLI) | payer MEDICAID ==
[2017-08-22 10:12] LABS: ALBUMIN 3.7 GM/DL (3.2-5.2); ALBUMIN/GLOBULIN RATIO 1.03 (1.00-1.93); ALKALINE PHOSPHATASE 53 U/L (45-117); ALT/SGPT 51 U/L (12-78); ANION GAP 10 MEQ/L (8-16); AST/SGOT 51 U/L (7-37); BILIRUBIN,TOTAL 0.4 MG/DL (0.2-1.0); BLOOD UREA NITROGEN 20 MG/DL (7-18); CALCIUM LEVEL 8.9 MG/DL (8.5-10.1); CARBON DIOXIDE LEVEL 25 MEQ/L (21-32); CHLORIDE LEVEL 105 MEQ/L (98-107); CHOLESTEROL LEVEL 168 MG/DL (<200); CHOLESTEROL RISK RATIO 3.652 (<5); CREATININE FOR GFR 0.64 MG/DL (0.55-1.30); GLOMERULAR FILTRATION RATE > 60.0 (>51); GLUCOSE, FASTING 101 MG/DL (70-100); HDL CHOLESTEROL 46 MG/DL (>40); LDL CHOLESTEROL 66.6 MG/DL (<100); NON-HDL-C 122 MG/DL; POTASSIUM SERUM 4.3 MEQ/L (3.5-5.1); SODIUM LEVEL 140 MEQ/L (136-145); TOTAL PROTEIN 7.3 GM/DL (6.4-8.2); TRIGLYCERIDES LEVEL 277 MG/DL (<150)
== END ==
LOC: M LAB 08:53
DX: E78.2 Mixed hyperlipidemia (principal)
CPT/HCPCS: 80053

== ENCOUNTER 2017-08-23 08:44 | Outpatient (RCR) | payer MEDICAID | END 2017-09-09 | LOC: M PT 08:44 | DX: Z51.89 Encounter for other specified aftercare (principal); M25.551 Pain in right hip; M16.51 Unilateral post-traumatic osteoarthritis, right hip ==

== ENCOUNTER → 2017-09-04 | Outpatient (CLI) | payer MEDICAID | LOC: M RAD 08:57 | DX: Z12.31 Encounter for screening mammogram for malignant neoplasm of breast (principal); Z85.3 Personal history of malignant neoplasm of breast; Z78.0 Asymptomatic menopausal state; Z79.810 Long term (current) use of selective estrogen receptor modulators (SERMs) | CPT/HCPCS: 77067 ==

== ENCOUNTER 2017-10-14 11:56 | Emergency (ER) | payer MEDICAID ==
[2017-10-14 15:42] LABS: CREATININE FOR GFR 0.81 MG/DL (0.55-1.30); GLOMERULAR FILTRATION RATE > 60.0 (>51)
[2017-10-14 15:42] LABS: BLOOD UREA NITROGEN 16 MG/DL (7-18)
[2017-10-14] MEDS ORDERED: PROHANCE 279.3MG/ML 5ML VIAL (A9576) As Ordered ×2 (15:52)
[2017-10-14] MEDS ORDERED: PROHANCE 279.3MG/ML 15ML VIAL (A9576) As Ordered ×2 (15:53)
== END 2017-10-14 17:41 | disposition home or self-care (01) ==
LOC: M ED 11:56
DX: H53.131 Sudden visual loss, right eye (principal); E11.9 Type 2 diabetes mellitus without complications; I10 Essential (primary) hypertension; E78.5 Hyperlipidemia, unspecified; Z88.0 Allergy status to penicillin
CPT/HCPCS: A9576

== ENCOUNTER → 2017-12-25 | Outpatient (CLI) | payer MEDICAID ==
[2017-12-25 09:04] LABS: ESTIMATED AVERAGE GLUCOSE 131 MG/DL (60-110); HEMOGLOBIN A1c 6.2 %
== END ==
LOC: M LAB 07:29
DX: E11.9 Type 2 diabetes mellitus without complications (principal)
CPT/HCPCS: 83036

== ENCOUNTER 2018-01-15 08:28 | Outpatient (RCR) | payer MEDICAID | END 2018-02-09 | LOC: M PT 08:28 | DX: Z47.89 Encounter for other orthopedic aftercare (principal); M17.11 Unilateral primary osteoarthritis, right knee; M25.561 Pain in right knee | CPT/HCPCS: 97110 ==

== ENCOUNTER 2018-02-13 08:43 | Outpatient (RCR) | payer MEDICAID | END 2018-03-11 | LOC: M PT 08:43 | DX: Z51.89 Encounter for other specified aftercare (principal); M17.11 Unilateral primary osteoarthritis, right knee ==

== ENCOUNTER → 2018-03-09 | Outpatient (REF) | payer MEDICAID | LOC: M SFHCWAGY 10:13 | DX: Z12.4 Encounter for screening for malignant neoplasm of cervix (principal) ==

== ENCOUNTER 2018-03-14 08:18 | Outpatient (RCR) | payer MEDICAID | END 2018-04-11 | LOC: M PT 08:18 | DX: M17.11 Unilateral primary osteoarthritis, right knee (principal) ==

== ENCOUNTER 2018-07-23 08:18 | Day surgery (SDC) | payer MEDICAID ==
[~2018-07-23] VITALS: Ht 165.1 cm; Wt 82.1 kg
[~2018-07-23 08:18] MED LIST changes: +ASPI1TAB PO; -BUPIVACAINE HCL 0.25% 30 ML VIAL As Ordered ONE; +CELE1CAP9 PO; +EFFE75CA2 PO; +HYDR25TAB PO; +IRON65TA PO; -ISOVUE-M 300 61% 15ML VIAL (Q9967) As Ordered ONE; -LIDOCAINE 1% SDV INJ 30 ML VIAL As Ordered ONE; +LIDOCAINE 2% INJ 100 MG/5 ML SDV (FOR ANES.) As Ordered ONE; +LISI40TA PO; +LOVA1CAP17 PO; +METF500T4 PO; +MOBI4TAB PO; +NORC1TAB4 PO; +OMEG1CAP4; +PRAV40TA2 PO; +PROPOFOL 200 MG/20 ML VIAL As Ordered ONE; +SERT-155 PO; +TAMO20TA8 PO; -TRIAMCINOLONE ACETONIDE SUSP 40 MG/ML VIAL (J3301) As Ordered ONE; +VITA200016 PO; +VITA500T PO; +iron PO
[2018-07-23] MEDS ORDERED: NS 1,000 ML IV ONE ×2 (09:00→09:15)
--- NOTE | 2018-07-23 10:12 | ROOR ---
Patient Name: Chana Pacheco Procedure Date: 07/23/2018 9:51 AM Date of : 1955 Age: 62 Room: [facility] Gender: Female Note Status: Finalized Procedure: Colonoscopy Indications: High risk colon cancer surveillance: Personal history of colonic polyps, Last colonoscopy: January 2015 Providers: Denys CARTY MD Referring MD: Rupa Stringer MD Requesting Provider: Medicines: Monitored Anesthesia Care Complications: No immediate complications. Procedure: Pre-Anesthesia Assessment: - The heart rate, respiratory rate, oxygen saturations, blood pressure, adequacy of pulmonary ventilation, and response to care were monitored throughout the procedure. The Colonoscope was introduced through the anus and advanced to the cecum, identified by appendiceal orifice and ileocecal valve. The colonoscopy was performed without difficulty. The patient tolerated the procedure well. The quality of the bowel preparation was good. Findings: The perianal and digital rectal examinations were normal. A 4 mm polyp was found in the rectum (benign-appearing lesion). The polyp was sessile. The polyp was removed with a cold snare. Resection and retrieval were complete. Multiple small and large-mouthed diverticula were found in the sigmoid colon. Internal hemorrhoids were found during retroflexion. The hemorrhoids were moderate. The exam was otherwise normal throughout the examined colon. Impression: - One benign appearing 4 mm polyp in the rectum, removed with a cold snare. Resected and retrieved. - Diverticulosis in the sigmoid colon. - Internal hemorrhoids. - The exam was otherwise normal to the cecum. Recommendation: - Telephone endoscopist for pathology results in 2 weeks. - Repeat colonoscopy in 5 years for surveillance. Denys Carty MD Denys CARTY MD 07/23/2018 10:11:54 AM This report has been signed electronically. Number of Addenda: 0 Note Initiated On: 07/23/2018 9:51 AM Estimated Blood Loss: Estimated blood loss: none.
[2018-07-23 10:30] VITALS: BP 144/71
== END 2018-07-23 10:35 | disposition home or self-care (01) ==
LOC: M OPP 08:18
PROVIDERS: ATTEND Internal Medicine Gastroenterology
DX: Z86.010 Personal history of colon polyps (principal); K62.1 Rectal polyp; K57.30 Diverticulosis of large intestine without perforation or abscess without bleeding; K64.8 Other hemorrhoids; E11.9 Type 2 diabetes mellitus without complications; Z88.0 Allergy status to penicillin; Z79.84 Long term (current) use of oral hypoglycemic drugs; Z79.899 Other long term (current) drug therapy; Z85.3 Personal history of malignant neoplasm of breast; E78.00 Pure hypercholesterolemia, unspecified

== ENCOUNTER → 2018-07-26 | Outpatient (CLI) | payer MEDICAID ==
[~2018-07-26] MED LIST changes: -LIDOCAINE 2% INJ 100 MG/5 ML SDV (FOR ANES.) As Ordered ONE; -PROPOFOL 200 MG/20 ML VIAL As Ordered ONE
[2018-07-26 13:59] LABS: HEMOGLOBIN A1c 5.6 %
== END ==
LOC: M LAB 11:38
PROVIDERS: ATTEND Nurse Practitioner Family
DX: E11.9 Type 2 diabetes mellitus without complications (principal)

== ENCOUNTER → 2018-09-06 | Outpatient (CLI) | payer MEDICAID ==
--- NOTE | 2018-09-06 10:06 | REPMRS ---
Patient History The patient states she had a clinical breast exam in June 2018.No known family history of cancer. Stereotatic Loc for ea Lesion of the left breast, August 25, 2011. Taking tamoxifen for 3 years. Patient has lost 30 pounds since last mammogram(intentional) 3D TOMOSYNTHESIS WAS PERFORMED. Digital Mammo Screening Bilat: September 06, 2018 - Exam #: [id number] Bilateral CC and MLO view(s) were taken. Technologist: Trini Walton, Technologist Prior study comparison: September 04, 2017, bilateral digital mammo screening bilat performed at [facility]. August 22, 2016, bilateral digital mammo screening bilat performed at [facility]. FINDINGS: There are scattered fibroglandular densities. There is no evidence of cancer on this mammogram. No significant changes when compared with prior studies. Assessment: BI-RADS/ACR category 2 mammogram. Benign Findings. Recommendation Routine screening mammogram of both breasts in 1 year (for women over age 40). This mammogram was interpreted with the aid of an FDA-approved computer-aided dectection system. Electronically Signed By: Sagar Hansen MD 09/06/18 6551
== END ==
LOC: M RAD 09:03
PROVIDERS: ATTEND Internal Medicine Hematology & Oncology
DX: Z85.3 Personal history of malignant neoplasm of breast (principal); Z79.810 Long term (current) use of selective estrogen receptor modulators (SERMs)

== ENCOUNTER → 2019-01-22 | Outpatient (CLI) | payer MEDICAID ==
[~2019-01-22] MED LIST changes: -ASPI1TAB PO; +ASPI81TA26 PO; -NORC1TAB4 PO; +NORC1TAB7 PO
[2019-01-22 08:29] LABS: ALBUMIN 3.5 GM/DL (3.2-5.2); ALT/SGPT 33 U/L (12-78); BILIRUBIN,TOTAL 0.3 MG/DL (0.2-1.0); BLOOD UREA NITROGEN 23 MG/DL (7-18); CALCIUM LEVEL 8.9 MG/DL (8.8-10.2); CARBON DIOXIDE LEVEL 25 MEQ/L (21-32); CHLORIDE LEVEL 103 MEQ/L (98-107); CHOLESTEROL LEVEL 156 MG/DL (<200); CHOLESTEROL RISK RATIO 2.644 (<5); CREATININE FOR GFR 0.79 MG/DL (0.55-1.30); GLOMERULAR FILTRATION RATE > 60.0 (>45); GLUCOSE, FASTING 97 MG/DL (70-100); HDL CHOLESTEROL 59 MG/DL (>40); LDL CHOLESTEROL 62 MG/DL (<100); NON-HDL-C 97 MG/DL; POTASSIUM SERUM 4.2 MEQ/L (3.5-5.1); SODIUM LEVEL 137 MEQ/L (136-145); TOTAL PROTEIN 7.3 GM/DL (6.4-8.2); TRIGLYCERIDES LEVEL 176 MG/DL (<150)
[2019-01-22 08:35] LABS: MALB URINE SIEMENS 19.3 MG/L
== END ==
LOC: M LAB 07:28
PROVIDERS: ATTEND Nurse Practitioner Family
DX: E11.9 Type 2 diabetes mellitus without complications (principal)

== ENCOUNTER → 2019-02-25 | Outpatient (CLI) | payer MEDICAID ==
[~2019-02-25] MED LIST changes: +METF-791 PO; -METF500T4 PO
[2019-02-25 15:20] LABS: BASO # 0.1 10^3/uL (0.0-0.2); BASO % 1.3 % (0.0-1.0); EOS # 0.2 10^3/uL (0.0-0.5); EOS % 2.1 % (0.0-3.0); HEMATOCRIT 37.9 % (36.0-47.0); HEMOGLOBIN 12.8 g/dl (12.0-15.5); LYMPH % 37.8 % (24.0-44.0); MEAN CORPUSCULAR HEMOGLOBIN 30.8 pg (27.0-33.0); MEAN CORPUSCULAR HGB CONC 33.8 g/dl (32.0-36.5); MEAN CORPUSCULAR VOLUME 91.1 fl (80.0-96.0); MONO # 0.7 10^3/uL (0.0-0.8); NEUTROPHILS # 3.9 10^3/uL (1.5-8.5); NEUTROPHILS % 49.7 % (36.0-66.0); PLATELET COUNT, AUTOMATED 246 10^3/uL (150-450); RED BLOOD COUNT 4.16 10^6/uL (4.00-5.40); WHITE BLOOD COUNT 7.9 10^3/uL (4.0-10.0)
[2019-02-25 15:40] LABS: HEMOGLOBIN A1c 5.8 %
[2019-02-25 16:00] LABS: ALBUMIN 3.8 GM/DL (3.2-5.2); PERCENT SATURATION 24.5 % (13.2-45.0); THYROID STIMULATING HORMONE 1.8 uIU/ML (0.358-3.740)
== END ==
LOC: M LAB 14:46
PROVIDERS: ATTEND Orthopaedic Surgery
DX: Z01.818 Encounter for other preprocedural examination (principal); Z86.39 Personal history of other endocrine, nutritional and metabolic disease; D63.8 Anemia in other chronic diseases classified elsewhere; M25.569 Pain in unspecified knee; M17.12 Unilateral primary osteoarthritis, left knee

== ENCOUNTER → 2019-02-27 | Outpatient (CLI) | payer MEDICAID | LOC: M PT 09:03 | PROVIDERS: ATTEND Orthopaedic Surgery | DX: Z01.818 Encounter for other preprocedural examination (principal); M25.569 Pain in unspecified knee; M17.12 Unilateral primary osteoarthritis, left knee ==

== ENCOUNTER → 2019-03-26 | Outpatient (REF) | payer MEDICAID ==
[2019-03-29 08:20] LABS: HPV HYBRID CAPTURE II Negative (Negative)
== END ==
LOC: M SFHCWAGY 10:20
PROVIDERS: ATTEND Nurse Practitioner Women's Health
DX: Z12.4 Encounter for screening for malignant neoplasm of cervix (principal)

== ENCOUNTER 2019-04-10 07:42 | Outpatient (RCR) | payer MEDICAID ==
[~2019-04-10 07:42] MED LIST changes: -SERT-155 PO; +SERT50TA29 PO
== END 2019-04-11 ==
LOC: M PT 07:42
PROVIDERS: ATTEND Orthopaedic Surgery
DX: Z47.1 Aftercare following joint replacement surgery (principal); Z96.652 Presence of left artificial knee joint; M25.569 Pain in unspecified knee; M17.12 Unilateral primary osteoarthritis, left knee

== ENCOUNTER 2019-05-10 07:45 | Outpatient (RCR) | payer MEDICAID | END 2019-05-11 | LOC: M PT 07:45 | PROVIDERS: ATTEND Orthopaedic Surgery | DX: M25.539 Pain in unspecified wrist (principal); M17.12 Unilateral primary osteoarthritis, left knee ==

== ENCOUNTER 2019-06-06 07:48 | Outpatient (RCR) | payer MEDICAID | END 2019-06-11 | LOC: M PT 07:48 | PROVIDERS: ATTEND Orthopaedic Surgery | DX: M25.569 Pain in unspecified knee (principal); M17.12 Unilateral primary osteoarthritis, left knee ==

== ENCOUNTER 2019-06-13 05:46 | Day surgery (SDC) | payer MEDICAID ==
[~2019-06-13] VITALS: Ht 165.1 cm; Wt 86.6 kg
[2019-06-13] MEDS ORDERED: LR 1,000 ML IV ONE (06:00)
[2019-06-13] MEDS ORDERED: PROPOFOL 200 MG/20 ML VIAL As Ordered ONE (07:16)
[2019-06-13] MEDS ORDERED: LIDOCAINE 2% INJ 100 MG/5 ML SDV (FOR ANES.) As Ordered ONE (07:16)
[2019-06-13] MEDS ORDERED: MIDAZOLAM INJ 2 MG/2 ML VIAL (J2250) As Ordered ONE (07:16)
[2019-06-13] MEDS ORDERED: fentaNYL 100 MCG/2 ML INJECTION (J3010) As Ordered ONE (07:17)
[2019-06-13] MEDS ORDERED: ONDANSETRON 4MG/2ML VIAL (J2405) As Ordered ONE (07:17)
[2019-06-13] MEDS ORDERED: dexameTHASONE 4 MG/ML 1ML VIAL (J1100) As Ordered ONE (07:17)
--- NOTE | 2019-06-13 08:03 | ECGEPIP ---
[facility] Test Date: 2019-06-13 Pat Name: VANGIE OJEDA Department: Room: - Gender: Female Manager Of Human Resources: ESTRADA : 1955 Requested By: Everardo Hassan Order Number: [id number] Reading MD: Uriel Astudillo Measurements Intervals [place] Rate: 75 P: 40 NE: 194 QRS: -3 QRSD: 96 T: 34 QT: 375 QTc: 419 Interpretive Statements Normal sinus rhythm Low QRS complex voltage in the limb leads Consider prior IWMI Comparison tracing not on file Electronically Signed on 06-13-2019 8:03:30 EST by Uriel Astudillo
[2019-06-13] MEDS ORDERED: KETOROLAC 60 MG/2 ML VIAL (J1885) As Ordered ONE (08:17)
[2019-06-13] MEDS ORDERED: ACETAMINOPHEN 1000MG 100ML IV BTL (OFIRMEV) (J0131 PER 10MG) As Ordered ONE (08:17)
[2019-06-13] MEDS ORDERED: ACETAMINOPHEN 500 MG TAB PO ONE ×2 (09:00→13:00)
[2019-06-13] MEDS ORDERED: fentaNYL 100 MCG/2 ML INJECTION (J3010) IV PRN (09:00)
[2019-06-13] MEDS ORDERED: ONDANSETRON 4MG/2ML VIAL (J2405) IV PRN (09:00)
[2019-06-13] MEDS ORDERED: oxyCODONE 5MG TAB PO PRN (09:00)
[2019-06-13] MEDS ORDERED: LR 1,000 ML IV SCH ×2 (09:00)
[2019-06-13 10:07] VITALS: BP 132/66
--- NOTE | 2019-06-13 10:46 | RO ---
DATE OF PROCEDURE: 06/13/2019 PREPROCEDURE DIAGNOSES: Postmenopausal bleeding, endometrial cells on Pap smear. POSTPROCEDURE DIAGNOSES: Postmenopausal bleeding, endometrial cells on Pap smear. PROCEDURE: Hysteroscopy, dilatation and curettage. SURGEON: Dr. Brett Altman ANESTHESIA: General endotracheal. ESTIMATED BLOOD LOSS: Minimal. URINE OUTPUT: 100 mL. FINDINGS: Normal appearing endometrial cavity with small excrescences in the upper right fundal area. Small amount of vaginal bleeding noted at the time of procedure. Normal sized uterus. DESCRIPTION OF PROCEDURE: The patient was taken to the operative room where general endotracheal anesthesia was induced. She was prepped and draped in a sterile fashion in a dorsal lithotomy position. The bladder was emptied with a catheter. Pediatric speculum was used to visualize the cervix. The anterior lip of the cervix was grasped with a tenaculum and the cervix was dilated with taper dilators. Diagnostic hysteroscope using normal saline as the distention medium was placed through the internal os. Visualization of the endometrial cavity revealed the findings noted above. Hysteroscope was removed. Sharp curettage was performed. Hysteroscope was replaced. The endometrial cavity appeared normal at the end of the procedure. All instruments were removed. Sponge and instrument counts were correct. The patient was extubated and was brought to the recovery room in stable condition.
== END 2019-06-13 10:10 | disposition home or self-care (01) ==
LOC: M SDC 05:46
PROVIDERS: ATTEND Specialist
DX: N85.8 Other specified noninflammatory disorders of uterus (principal); N95.0 Postmenopausal bleeding; I10 Essential (primary) hypertension; E78.00 Pure hypercholesterolemia, unspecified; E11.9 Type 2 diabetes mellitus without complications; M19.90 Unspecified osteoarthritis, unspecified site; M48.00 Spinal stenosis, site unspecified; C50.019 Malignant neoplasm of nipple and areola, unspecified female breast; Z92.3 Personal history of irradiation; Z96.641 Presence of right artificial hip joint; Z96.653 Presence of artificial knee joint, bilateral; Z88.0 Allergy status to penicillin; Z79.899 Other long term (current) drug therapy; Z79.84 Long term (current) use of oral hypoglycemic drugs
CPT/HCPCS: 58558; 88305; 93005; J0131; J1100; J1885; J2250; J2405; J3010

== ENCOUNTER → 2019-07-30 | Outpatient (CLI) | payer MEDICAID | LOC: M LAB 14:35 | PROVIDERS: ATTEND Nurse Practitioner Family | DX: E11.9 Type 2 diabetes mellitus without complications (principal) ==

== ENCOUNTER → 2019-09-09 | Outpatient (CLI) | payer MEDICAID ==
[~2019-09-09] MED LIST changes: +VITA50005 PO
--- NOTE | 2019-09-09 10:30 | REPMRS ---
Patient History The patient states she had a clinical breast exam in March 2019. No known family history of cancer. The patient has a personal history of breast cancer on the right. Stereotatic Loc for ea Lesion of the left breast, August 25, 2011. Taking tamoxifen for 3 years. Digital Woman Screen Mammo: September 09, 2019 - Exam #: [id number] Bilateral CC and MLO view(s) were taken. Technologist: RT Kody Prior study comparison: September 06, 2018, bilateral digital mammo screening bilat, performed at [facility]. September 04, 2017, bilateral digital mammo screening bilat, performed at [facility]. August 22, 2016, bilateral digital mammo screening bilat, performed at [facility]. FINDINGS: There are scattered fibroglandular densities. There are three needle biopsy marker clips again noted in the left breast. Stable post-treatment changes are again noted in the right breast. There has been no change in the appearance of the mammogram from the prior studies. There is a mild amount of scattered fibroglandular density which is fairly symmetric. There is no interval development of dominant mass, architectural distortion, or grouped microcalcification suggestive of malignancy. 3-D tomosynthesis shows no additional findings. Assessment: BI-RADS/ACR category 2 mammogram. Benign Findings. Recommendation Routine screening mammogram of both breasts in 1 year (for women over age 40). This mammogram was interpreted with the aid of an FDA-approved computer-aided dectection system. Electronically Signed By: Jesus Huizar MD 09/09/19 [id number]
== END ==
LOC: M WHC 08:48
PROVIDERS: ATTEND Internal Medicine Hematology & Oncology
DX: Z12.31 Encounter for screening mammogram for malignant neoplasm of breast (principal)

== ENCOUNTER → 2019-12-25 | Outpatient (CLI) | payer MEDICAID ==
[~2019-12-25] MED LIST changes: +CLIN300C5; +D31000TA2 PO; -METF-791 PO; +METF-838 PO; +PANT40TA29; +VITA-243 PO; -VITA500T PO
[2019-12-25 12:55] LABS: BASO # 0.1 10^3/uL (0.0-0.2); BASO % 0.7 % (0.0-1.0); EOS # 0.3 10^3/uL (0.0-0.5); EOS % 2.7 % (0.0-3.0); HEMATOCRIT 38.3 % (36.0-47.0); LYMPH # 1.7 10^3/uL (1.5-5.0); LYMPH % 15.8 % (24.0-44.0); MEAN CORPUSCULAR HEMOGLOBIN 30.4 pg (27.0-33.0); MEAN CORPUSCULAR HGB CONC 33.9 g/dl (32.0-36.5); MEAN CORPUSCULAR VOLUME 89.7 fl (80.0-96.0); MONO # 0.8 10^3/uL (0.0-0.8); MONO % 6.9 % (0.0-5.0); NEUTROPHILS % 73.6 % (36.0-66.0); PLATELET COUNT, AUTOMATED 250 10^3/uL (150-450); RED BLOOD COUNT 4.27 10^6/uL (4.00-5.40); WHITE BLOOD COUNT 10.9 10^3/uL (4.0-10.0)
[2019-12-25 13:19] LABS: ALBUMIN 3.9 GM/DL (3.2-5.2); ALT/SGPT 69 U/L (12-78); BILIRUBIN,TOTAL 0.5 MG/DL (0.2-1.0); BLOOD UREA NITROGEN 17 MG/DL (7-18); CALCIUM LEVEL 9.4 MG/DL (8.8-10.2); CARBON DIOXIDE LEVEL 23 MEQ/L (21-32); CHLORIDE LEVEL 100 MEQ/L (98-107); CREATININE FOR GFR 0.82 MG/DL (0.55-1.30); GLOMERULAR FILTRATION RATE > 60.0 (>45); GLUCOSE, FASTING 118 MG/DL (70-100); LIPASE 211 U/L (73-393); POTASSIUM SERUM 3.5 MEQ/L (3.5-5.1); SODIUM LEVEL 135 MEQ/L (136-145); TOTAL PROTEIN 7.5 GM/DL (6.4-8.2)
[2019-12-25 13:25] LABS: TOTAL 25(OH) VITAMIN D 27.7 NG/ML (30.0-100.0)
[2019-12-26 18:09] LABS: H PYLORI SERUM QUANT IGA <9.0 units (0.0-8.9); H PYLORI SERUM QUANT IGM <9.0 units (0.0-8.9); H PYLORI SERUM QUANT IgG ABY 0.32 (0.00-0.79)
== END ==
LOC: M WUC 10:33
PROVIDERS: ATTEND Nurse Practitioner Family
DX: K21.9 Gastro-esophageal reflux disease without esophagitis (principal)

== ENCOUNTER → 2020-01-17 | Outpatient (REF) | payer MEDICAID ==
[2020-03-02 20:26] LABS: ALBUMIN 3.8 GM/DL (3.2-5.2); ALT/SGPT 79 U/L (12-78); BILIRUBIN,TOTAL 0.4 MG/DL (0.2-1.0); BLOOD UREA NITROGEN 20 MG/DL (7-18); CALCIUM LEVEL 9.3 MG/DL (8.8-10.2); CARBON DIOXIDE LEVEL 25 MEQ/L (21-32); CHLORIDE LEVEL 104 MEQ/L (98-107); CHOLESTEROL LEVEL 203 MG/DL (<200); CHOLESTEROL RISK RATIO 4.319 (<5); GLOMERULAR FILTRATION RATE > 60.0 (>45); GLUCOSE, FASTING 101 MG/DL (70-100); HDL CHOLESTEROL 47 MG/DL (>40); HEMOGLOBIN A1c 5.8 %; LDL CHOLESTEROL 100 MG/DL (<100); NON-HDL-C 156 MG/DL; POTASSIUM SERUM 4.4 MEQ/L (3.5-5.1); SODIUM LEVEL 137 MEQ/L (136-145); TOTAL PROTEIN 7.4 GM/DL (6.4-8.2); TRIGLYCERIDES LEVEL 282 MG/DL (<150)
[2020-03-02 20:27] LABS: MALB URINE SIEMENS 15.5 MG/L
== END ==
LOC: M LABWUC 07:17
PROVIDERS: ATTEND Nurse Practitioner Family
DX: E78.2 Mixed hyperlipidemia (principal); E11.9 Type 2 diabetes mellitus without complications

== ENCOUNTER → 2020-03-27 | Outpatient (REF) | payer MEDICAID | LOC: M SFHCPLAZ 13:13 | PROVIDERS: ATTEND Nurse Practitioner Women's Health | DX: Z12.4 Encounter for screening for malignant neoplasm of cervix (principal) ==

== ENCOUNTER → 2020-04-16 | Outpatient (CLI) | payer MEDICAID | LOC: M LABSMTC 10:22 | PROVIDERS: ATTEND Anesthesiology | DX: Z01.812 Encounter for preprocedural laboratory examination (principal); Z20.828 Contact with and (suspected) exposure to other viral communicable diseases | CPT/HCPCS: C9803; U0003 ==

== ENCOUNTER 2020-04-21 14:06 | Day surgery (SDC) | payer MEDICAID ==
[~2020-04-21] VITALS: Ht 167.6 cm; Wt 91.2 kg
[~2020-04-21 14:06] MED LIST changes: +NS 1,000 ML IV ONE
[2020-04-21] MEDS ORDERED: fentaNYL 100 MCG/2 ML INJECTION (J3010) As Ordered ONE (16:47)
[2020-04-21] MEDS ORDERED: LIDOCAINE 2% 100MG/5ML SDV (FOR ANES.) As Ordered ONE (16:47)
--- NOTE | 2020-04-21 16:58 | ROOR ---
Patient Name: Chana Pacheco Procedure Date: 04/21/2020 4:41 PM Date of : 1955 Age: 64 Room: [facility] Gender: Female Note Status: Finalized Procedure: Upper GI endoscopy Indications: Suspected esophageal reflux, Globus sensation Providers: Denys CARTY MD Referring MD: Rupa Stringer MD Requesting Provider: Medicines: Monitored Anesthesia Care Complications: No immediate complications. Procedure: Pre-Anesthesia Assessment: - The heart rate, respiratory rate, oxygen saturations, blood pressure, adequacy of pulmonary ventilation, and response to care were monitored throughout the procedure. The Endoscope was introduced through the mouth, and advanced to the second part of duodenum. The upper GI endoscopy was accomplished without difficulty. The patient tolerated the procedure well. Findings: Non-severe esophagitis was found at the gastroesophageal junction. Biopsies were taken with a cold forceps for histology. The exam of the esophagus was otherwise normal. The entire examined stomach was normal. The examined duodenum was normal. Impression: - Minimal reflux esophagitis. Biopsied. - Esophagus otherwise normal. - Normal stomach. - Normal examined duodenum. Recommendation: - Continue present medications. - Follow an antireflux regimen. - Telephone endoscopist for pathology results in 2 weeks. Denys Carty MD Denys CARTY MD 04/21/2020 4:57:16 PM Electronically signed by Denys CARTY MD Number of Addenda: 0 Note Initiated On: 04/21/2020 4:41 PM Estimated Blood Loss: Estimated blood loss: none.
[2020-04-21 17:15] VITALS: BP 140/72
== END 2020-04-21 17:20 | disposition home or self-care (01) ==
LOC: M OPP 14:06
PROVIDERS: ATTEND Internal Medicine Gastroenterology
DX: K21.00 Gastro-esophageal reflux disease with esophagitis, without bleeding (principal); F45.8 Other somatoform disorders; R07.0 Pain in throat; K31.89 Other diseases of stomach and duodenum; E11.9 Type 2 diabetes mellitus without complications; Z79.4 Long term (current) use of insulin; Z79.899 Other long term (current) drug therapy; Z88.0 Allergy status to penicillin; Z85.3 Personal history of malignant neoplasm of breast; Z92.3 Personal history of irradiation; Z92.21 Personal history of antineoplastic chemotherapy
CPT/HCPCS: 43239; 88305; J3010

== ENCOUNTER → 2020-05-18 | Outpatient (CLI) | payer SELFPAY ==
[~2020-05-18] MED LIST changes: -CLIN300C5; +CLIN300C6; -NS 1,000 ML IV ONE
== END ==
LOC: M LABSMTC 11:42
PROVIDERS: ATTEND Pediatrics
DX: Z20.828 Contact with and (suspected) exposure to other viral communicable diseases (principal)

== ENCOUNTER → 2020-07-07 | Outpatient (CLI) | payer MEDICAID ==
[~2020-07-07] MED LIST changes: +HYDR-3490 PO; -HYDR25TAB PO; -LISI40TA PO; +LISI40TA4 PO; -OMEG1CAP4; +OMEG1CAP85
[2020-07-07 10:27] LABS: BLOOD UREA NITROGEN 21 MG/DL (7-18); CREATININE FOR GFR 0.87 MG/DL (0.55-1.30); GLUCOSE, FASTING 119 MG/DL (70-100)
[2020-07-07 10:28] LABS: ALBUMIN 3.8 GM/DL (3.2-5.2); ALT/SGPT 86 U/L (12-78); BILIRUBIN,TOTAL 0.5 MG/DL (0.2-1.0); CALCIUM LEVEL 9.5 MG/DL (8.8-10.2); CARBON DIOXIDE LEVEL 28 MEQ/L (21-32); CHLORIDE LEVEL 102 MEQ/L (98-107); CHOLESTEROL LEVEL 225 MG/DL (<200); GLOMERULAR FILTRATION RATE > 60.0 (>45); HDL CHOLESTEROL 55 MG/DL (>40); LDL CHOLESTEROL 112 MG/DL (<100); NON-HDL-C 170 MG/DL; SODIUM LEVEL 137 MEQ/L (136-145); TOTAL PROTEIN 7.8 GM/DL (6.4-8.2); TRIGLYCERIDES LEVEL 292 MG/DL (<150)
[2020-07-07 11:59] LABS: HEMOGLOBIN A1c 5.6 %
== END ==
LOC: M WUC 08:11
PROVIDERS: ATTEND Nurse Practitioner Family
DX: E78.2 Mixed hyperlipidemia (principal); E11.9 Type 2 diabetes mellitus without complications

== ENCOUNTER → 2020-09-09 | Outpatient (CLI) | payer MEDICAID ==
--- NOTE | 2020-09-09 09:30 | REP ---
INDICATION: MIKE SCR MAMMO/Z12.31. COMPARISON: 09/09/2019 as well as other prior exams. TECHNIQUE: MLO and CC views performed with tomosynthesis. FINDINGS: Post treatment changes are again noted in the right breast. Parenchymal pattern is stable with no new mass. However there are tiny calcifications in the upper outer quadrant for which magnification views are recommended. No new mass or calcifications are seen in the left breast. The Volpara volumetric breast density pattern is B. IMPRESSION: BIRADS/ACR category 0, incomplete. New tiny calcifications upper-outer quadrant right breast. Recommend magnification views. This mammogram was interpreted with the aid of an FDA-approved computer-aided detection system. The patient states she had a clinical breast exam in February 2020. The patient letter being requested is M0. RECOMMENDATION: Recommend magnification views right breast upper outer quadrant. <Electronically signed by Sagar Hansen > 09/09/20 0927
== END ==
LOC: M WHC 07:38
PROVIDERS: ATTEND Physician Assistant Medical
DX: R92.8 Other abnormal and inconclusive findings on diagnostic imaging of breast (principal); N63.11 Unspecified lump in the right breast, upper outer quadrant

== ENCOUNTER → 2020-09-17 | Outpatient (CLI) | payer MEDICAID ==
--- NOTE | 2020-09-17 09:24 | REP ---
INDICATION: ADDITIONAL VIEWS RT BREAST. COMPARISON: 09/09/2020 as well as other prior exams. TECHNIQUE: Additional mammographic images of the right breast are performed could in magnification views. FINDINGS: There is a tight cluster of pleomorphic microcalcifications in the upper-outer quadrant of the right breast. These are new. IMPRESSION: BIRADS/ACR category 4, suspicious. New clustered pleomorphic microcalcifications in the upper-outer quadrant of the right breast. Recommend stereotactic biopsy. This mammogram was interpreted with the aid of an FDA-approved computer-aided detection system. The patient letter being requested is M4. RECOMMENDATION: Recommend stereotactic biopsy calcifications upper-outer quadrant right breast. <Electronically signed by Sagar Hansen > 09/17/20 0923
== END ==
LOC: M WHC 08:26
PROVIDERS: ATTEND Physician Assistant Medical
DX: Z12.31 Encounter for screening mammogram for malignant neoplasm of breast (principal); R92.0 Mammographic microcalcification found on diagnostic imaging of breast

== ENCOUNTER → 2020-09-29 | Outpatient (CLI) | payer MEDICAID ==
[~2020-09-29] MED LIST changes: +PANT40TA29 PO
[2020-09-29 09:00] VITALS: BP 138/78
--- NOTE | 2020-09-29 09:11 | REP ---
INDICATION: RT BREAST CALCIFICATIONS,POST STEREOTACTIC BIOPSY. Marker clip placement views. COMPARISON: Comparison mammography 17 September 2020. TECHNIQUE: Craniocaudal and mediolateral views of the right breast are obtained. FINDINGS: Craniocaudal and mediolateral views of the right breast demonstrate the needle biopsy marker clip in good position where prior mammography showed the micro calcific grouping. The microcalcifications are no longer visible. IMPRESSION: Marker clip in good position right breast. No evidence of significant hematoma. <Electronically signed by Jesus Huizar > 09/29/20 0932
--- NOTE | 2020-09-29 09:54 | REP ---
INDICATION: RT BREAST CALCIFICATIONS,STEREOTACTIC BIOPSY. COMPARISON: Comparison mammography 17 September 2020.. TECHNIQUE: Single-view right breast specimen radiography. FINDINGS: Specimen radiograph demonstrates microcalcifications from the target grouping in 2 of the removed specimens. IMPRESSION: Specimen radiography shows microcalcifications. <Electronically signed by Jesus Huizar > 09/29/20 0951
--- NOTE | 2020-09-30 11:03 | REP ---
INDICATION: RT BREAST CALCIFICATIONS,STEREOTACTIC BIOPSY. COMPARISON: None. TECHNIQUE: This procedure is performed by Scarlet Alas [facility], under the direct supervision of Dr. Huizar. The risks and benefits of the procedure were explained to the patient and informed consent was obtained both verbally and written. Directly prior to the start of the procedure, a formal timeout was done in the procedure room. The cranial caudal approach was utilized on the prone table. The right breast microcalcification's were localized using mammographic guidance. The skin was prepped and draped in a sterile fashion. Twenty ml of buffered lidocaine 1% lidocaine 10 mg/ml was used as a local anesthetic. FINDINGS: A 10 gauge mammotome vacuum assisted biopsy device was inserted and advanced into the right breast microcalcification's and 6 core biopsy samples were obtained. A marker clip was placed at the biopsy site. Imaging of the specimen done directly after the biopsy demonstrated microcalcification's within the specimen. The patient tolerated the procedure well and there were no immediate complications. After the appropriate amount of monitored convalescence the patient was discharged from the department. IMPRESSION: Stereotactic guided right breast biopsy with micro clip placement. <Electronically signed by Scarlet Alas > 09/30/20 0892 <Electronically signed by Jesus Huizar > 09/30/20 [id number]
== END ==
LOC: M WHCPRO 06:32
PROVIDERS: ATTEND Physician Assistant Medical
DX: R92.8 Other abnormal and inconclusive findings on diagnostic imaging of breast (principal)

== ENCOUNTER → 2020-10-01 | Outpatient (CLI) | payer MEDICAID ==
[2020-10-01 08:29] LABS: ALBUMIN 3.6 GM/DL (3.2-5.2); ALT/SGPT 115 U/L (12-78); BILIRUBIN,TOTAL 0.3 MG/DL (0.2-1.0); BLOOD UREA NITROGEN 18 MG/DL (7-18); CALCIUM LEVEL 9.5 MG/DL (8.8-10.2); CARBON DIOXIDE LEVEL 23 MEQ/L (21-32); CHLORIDE LEVEL 104 MEQ/L (98-107); CHOLESTEROL LEVEL 201 MG/DL (<200); CHOLESTEROL RISK RATIO 3.722 (<5); CREATININE FOR GFR 0.77 MG/DL (0.55-1.30); GLOMERULAR FILTRATION RATE > 60.0 (>45); GLUCOSE, FASTING 115 MG/DL (70-100); HDL CHOLESTEROL 54 MG/DL (>40); LDL CHOLESTEROL 90 MG/DL (<100); NON-HDL-C 147 MG/DL; POTASSIUM SERUM 4.2 MEQ/L (3.5-5.1); SODIUM LEVEL 137 MEQ/L (136-145); TOTAL PROTEIN 7.5 GM/DL (6.4-8.2); TRIGLYCERIDES LEVEL 287 MG/DL (<150)
== END ==
LOC: M LAB 07:41
PROVIDERS: ATTEND Internal Medicine Endocrinology, Diabetes & Metabolism
DX: E78.5 Hyperlipidemia, unspecified (principal)

== ENCOUNTER → 2021-03-24 | Outpatient (REF) | payer MEDICAID ==
[~2021-03-24] MED LIST changes: +ERGO500029 PO; -VITA50005 PO
== END ==
LOC: M SFHCWAGY 09:59
PROVIDERS: ATTEND Nurse Practitioner Women's Health
DX: Z12.4 Encounter for screening for malignant neoplasm of cervix (principal); Z01.419 Encounter for gynecological examination (general) (routine) without abnormal findings; Z77.9 Other contact with and (suspected) exposures hazardous to health

== ENCOUNTER → 2021-03-31 | Outpatient (CLI) | payer MEDICAID ==
[~2021-03-31] MED LIST changes: +CLIN-250; -CLIN300C6
[2021-03-31 09:25] LABS: CREATININE, URINE 84.4 MG/DL; MALB URINE SIEMENS 7.7 MG/L; MAU/CREAT RATIO 9.1 MCG/MG (0.0-30.0)
== END ==
LOC: M LAB 07:56
PROVIDERS: ATTEND Nurse Practitioner Family
DX: E11.9 Type 2 diabetes mellitus without complications (principal)

== ENCOUNTER → 2021-07-07 | Outpatient (CLI) | payer MEDICAID ==
[2021-07-07 16:50] LABS: CALCIUM LEVEL 9.4 MG/DL (8.8-10.2); CREATININE FOR GFR 1.04 MG/DL (0.55-1.30); POTASSIUM SERUM 4.3 MEQ/L (3.5-5.1)
[2021-07-07 16:51] LABS: ALBUMIN 3.7 GM/DL (3.2-5.2); BILIRUBIN,TOTAL 0.3 MG/DL (0.2-1.0); CHOLESTEROL RISK RATIO 4.062 (<5); TOTAL 25(OH) VITAMIN D 58.7 NG/ML (30.0-100.0); TOTAL PROTEIN 7.5 GM/DL (6.4-8.2)
== END ==
LOC: M WUC 13:30
PROVIDERS: ATTEND Nurse Practitioner Family
DX: E78.2 Mixed hyperlipidemia (principal); E55.9 Vitamin D deficiency, unspecified

== ENCOUNTER → 2021-09-30 | Outpatient (CLI) | payer MEDICAID ==
[~2021-09-30] MED LIST changes: -D31000TA2 PO; +VITA100093 PO
[2021-09-30 13:07] LABS: HEMOGLOBIN A1c 5.8 %
[2021-09-30 13:15] LABS: BLOOD UREA NITROGEN 20 MG/DL (7-18); CALCIUM LEVEL 9.8 MG/DL (8.8-10.2); CARBON DIOXIDE LEVEL 24 MEQ/L (21-32); CHLORIDE LEVEL 102 MEQ/L (98-107); CREATININE FOR GFR 0.87 MG/DL (0.55-1.30); GLOMERULAR FILTRATION RATE > 60.0 (>45); GLUCOSE, FASTING 96 MG/DL (70-100); POTASSIUM SERUM 4.2 MEQ/L (3.5-5.1); SODIUM LEVEL 136 MEQ/L (136-145)
== END ==
LOC: M WUC 10:44
PROVIDERS: ATTEND Nurse Practitioner Family
DX: E11.9 Type 2 diabetes mellitus without complications (principal)

== ENCOUNTER → 2021-10-01 | Outpatient (CLI) | payer MEDICAID | LOC: M WHC 06:54 | PROVIDERS: ATTEND Nurse Practitioner Family | DX: Z12.31 Encounter for screening mammogram for malignant neoplasm of breast (principal) ==

== ENCOUNTER 2021-12-10 07:30 | Emergency (ER) | payer MEDICAID ==
[~2021-12-10] VITALS: Ht 167.6 cm; Wt 94.1 kg
[2021-12-10] MEDS ORDERED: VENL150C43 (07:43)
[2021-12-10] MEDS ORDERED: LATA0.0015 (07:43)
[2021-12-10] MEDS ORDERED: BOOSTRIX/ADACEL VACCINE (DIPHTH/PERTUSS/ACELL/TETANUS) 0.5ML SYR IM ONE (08:10)
[2021-12-10] MEDS ORDERED: NEOSPORIN OINT 0.9 GM PKT TOP ONE (08:20)
[2021-12-10 08:21] VITALS: BP 134/78
[2021-12-10] MEDS ORDERED: DOXY-443 PO (08:36)
[2021-12-10] MEDS ORDERED: CLEO300C2 PO (08:36)
[2021-12-10] MEDS ORDERED: CLEO150C PO (08:36)
== END 2021-12-10 09:00 | disposition home or self-care (01) ==
LOC: M ED 07:30
DX: S51.852A Open bite of left forearm, initial encounter (principal); W54.0XXA Bitten by dog, initial encounter; Y92.009 Unspecified place in unspecified non-institutional (private) residence as the place of occurrence of the external cause; I10 Essential (primary) hypertension; E11.9 Type 2 diabetes mellitus without complications; E78.5 Hyperlipidemia, unspecified; Z23 Encounter for immunization

== ENCOUNTER → 2021-12-27 | Outpatient (CLI) | payer MEDICAID ==
[~2021-12-27] MED LIST changes: +CLEO150C PO; +CLEO300C2 PO; +DOXY-443 PO; +LATA0.0015; +VENL150C43
[2021-12-27 11:02] LABS: BASO # 0.1 10^3/uL (0.0-0.2); BASO % 0.9 % (0.0-1.0); EOS # 0.1 10^3/uL (0.0-0.5); HEMOGLOBIN 12.6 g/dl (12.0-15.5); LYMPH # 1.5 10^3/uL (1.5-5.0); LYMPH % 21.7 % (24.0-44.0); MEAN CORPUSCULAR HEMOGLOBIN 30.1 pg (27.0-33.0); MEAN CORPUSCULAR VOLUME 86.1 fl (80.0-96.0); MONO # 0.4 10^3/uL (0.0-0.8); MONO % 6.3 % (2.0-8.0); NEUTROPHILS # 4.7 10^3/uL (1.5-8.5); NEUTROPHILS % 68.5 % (36.0-66.0); PLATELET COUNT, AUTOMATED 193 10^3/uL (150-450); RED BLOOD COUNT 4.18 10^6/uL (4.00-5.40); WHITE BLOOD COUNT 6.9 10^3/uL (4.0-10.0)
[2021-12-27 11:45] LABS: ALBUMIN 3.3 GM/DL (3.2-5.2); ALT/SGPT 62 U/L (12-78); BILIRUBIN,TOTAL 0.4 MG/DL (0.2-1.0); BLOOD UREA NITROGEN 20 MG/DL (7-18); CARBON DIOXIDE LEVEL 27 MEQ/L (21-32); CHLORIDE LEVEL 104 MEQ/L (98-107); CHOLESTEROL LEVEL 169 MG/DL (<200); CHOLESTEROL RISK RATIO 3.313 (<5); CREATININE FOR GFR 0.72 MG/DL (0.55-1.30); GLOMERULAR FILTRATION RATE > 60.0 (>45); GLUCOSE, FASTING 100 MG/DL (70-100); HDL CHOLESTEROL 51 MG/DL (>40); LDL CHOLESTEROL 59 MG/DL (<100); NON-HDL-C 118 MG/DL; POTASSIUM SERUM 3.8 MEQ/L (3.5-5.1); SODIUM LEVEL 138 MEQ/L (136-145); TOTAL PROTEIN 6.8 GM/DL (6.4-8.2); TRIGLYCERIDES LEVEL 293 MG/DL (<150)
[2021-12-27 11:55] LABS: MALB URINE SIEMENS 9.8 MG/L; MAU/CREAT RATIO 10.1 MCG/MG (0.0-30.0)
== END ==
LOC: M LAB 10:18
PROVIDERS: ATTEND Nurse Practitioner Family
DX: I10 Essential (primary) hypertension (principal); E11.9 Type 2 diabetes mellitus without complications

== ENCOUNTER → 2022-03-30 | Outpatient (CLI) | payer MEDICAID ==
[2022-03-30 14:51] LABS: HEMOGLOBIN A1c 5.8 %
== END ==
LOC: M WUC 09:16
PROVIDERS: ATTEND Nurse Practitioner Family
DX: E11.9 Type 2 diabetes mellitus without complications (principal)

== ENCOUNTER → 2022-04-29 | Outpatient (REF) | payer MEDICAID | LOC: M PLALAB 08:57 | PROVIDERS: ATTEND Nurse Practitioner Family | DX: Z12.4 Encounter for screening for malignant neoplasm of cervix (principal) ==

== ENCOUNTER → 2022-05-26 | Outpatient (CLI) | payer MEDICAID ==
[2022-05-26 10:41] LABS: BASO # 0.1 10^3/uL (0.0-0.2); BASO % 1.3 % (0.0-1.0); EOS # 0.3 10^3/uL (0.0-0.5); EOS % 4.7 % (0.0-3.0); HEMATOCRIT 38.3 % (36.0-47.0); HEMOGLOBIN 12.7 g/dl (12.0-15.5); MEAN CORPUSCULAR HEMOGLOBIN 28.9 pg (27.0-33.0); MEAN CORPUSCULAR HGB CONC 33.2 g/dl (32.0-36.5); MEAN CORPUSCULAR VOLUME 87.2 fl (80.0-96.0); MONO # 0.5 10^3/uL (0.0-0.8); MONO % 9.2 % (2.0-8.0); NEUTROPHILS # 3.7 10^3/uL (1.5-8.5); NEUTROPHILS % 66.4 % (36.0-66.0); PLATELET COUNT, AUTOMATED 201 10^3/uL (150-450); RED BLOOD COUNT 4.39 10^6/uL (4.00-5.40); WHITE BLOOD COUNT 5.6 10^3/uL (4.0-10.0)
[2022-05-26 11:09] LABS: CREATININE, URINE 110.6 MG/DL
[2022-05-26 11:10] LABS: MAU/CREAT RATIO 4.5 MCG/MG (0.0-30.0)
[2022-05-26 11:20] LABS: ALBUMIN 3.6 G/DL (3.2-5.2); ALKALINE PHOSPHATASE 69 U/L (46-116); ALT/SGPT 62 U/L (7.0-40); AST/SGOT 52 U/L (<34); BILIRUBIN,TOTAL 0.4 MG/DL (0.3-1.2); BLOOD UREA NITROGEN 23 MG/DL (9-23); CALCIUM LEVEL 9.3 MG/DL (8.3-10.6); CARBON DIOXIDE LEVEL 24 MMOL/L (20-31); CHLORIDE LEVEL 100 MMOL/L (98-107); CHOLESTEROL LEVEL 171 MG/DL (<200); CREATININE FOR GFR 0.79 MG/DL (0.55-1.30); GLOMERULAR FILTRATION RATE > 60.0 (>45); GLUCOSE, FASTING 98 MG/DL (74-106); HDL CHOLESTEROL 50.2 MG/DL (>40); LDL CHOLESTEROL 77.2 MG/DL (<100); NON-HDL-C 121 MG/DL; POTASSIUM SERUM 3.7 MMOL/L (3.5-5.1); SODIUM LEVEL 135 MMOL/L (136-145); TRIGLYCERIDES LEVEL 218 MG/DL (<150)
== END ==
LOC: M WUC 08:31
PROVIDERS: ATTEND Nurse Practitioner Family
DX: I10 Essential (primary) hypertension (principal); E11.9 Type 2 diabetes mellitus without complications

== ENCOUNTER → 2022-05-31 | Outpatient (CLI) | payer MEDICAID ==
[2022-05-31 13:23] LABS: BASO # 0.1 10^3/uL (0.0-0.2); BASO % 1.3 % (0.0-1.0); EOS # 0.2 10^3/uL (0.0-0.5); EOS % 3.7 % (0.0-3.0); HEMATOCRIT 38.9 % (36.0-47.0); HEMOGLOBIN 12.6 g/dl (12.0-15.5); LYMPH # 1.1 10^3/uL (1.5-5.0); LYMPH % 19.5 % (24.0-44.0); MEAN CORPUSCULAR HGB CONC 32.4 g/dl (32.0-36.5); MEAN CORPUSCULAR VOLUME 89.4 fl (80.0-96.0); MONO # 0.4 10^3/uL (0.0-0.8); MONO % 7.6 % (2.0-8.0); NEUTROPHILS # 3.6 10^3/uL (1.5-8.5); NEUTROPHILS % 67.7 % (36.0-66.0); PLATELET COUNT, AUTOMATED 166 10^3/uL (150-450); RED BLOOD COUNT 4.35 10^6/uL (4.00-5.40); WHITE BLOOD COUNT 5.4 10^3/uL (4.0-10.0)
[2022-05-31 13:46] LABS: FREE T4 1.08 NG/DL (0.89-1.76); LIPASE 58 U/L (12-53)
[2022-05-31 13:47] LABS: LDH LACTATE DEHYDROGENASE 181 U/L (120-246); MAGNESIUM LEVEL 1.4 MG/DL (1.8-2.4); THYROID STIMULATING HORMONE 1.544 uIU/ML (0.55-4.78)
[2022-05-31 13:49] LABS: ALBUMIN 3.7 G/DL (3.2-5.2); ALKALINE PHOSPHATASE 71 U/L (46-116); ALT/SGPT 56 U/L (7.0-40); AMYLASE 93 U/L (30-118); AST/SGOT 51 U/L (<34); BILIRUBIN,TOTAL 0.4 MG/DL (0.3-1.2); BLOOD UREA NITROGEN 16 MG/DL (9-23); CALCIUM LEVEL 9.2 MG/DL (8.3-10.6); CARBON DIOXIDE LEVEL 27 MMOL/L (20-31); CHLORIDE LEVEL 104 MMOL/L (98-107); CREATININE FOR GFR 0.72 MG/DL (0.55-1.30); GLOMERULAR FILTRATION RATE > 60.0 (>45); GLUCOSE, FASTING 144 MG/DL (74-106); SODIUM LEVEL 140 MMOL/L (136-145); TOTAL PROTEIN 6.9 G/DL (5.7-8.2)
[2022-05-31 14:45] LABS: APPEARANCE, URINE MANUAL CLEAR (CLEAR); COLOR, URINE MANUAL YELLOW (YELLOW)
[2022-05-31 14:46] LABS: BILIRUBIN, URINE MANUAL NEGATIVE (NEGATIVE); BLOOD URINE MANUAL NEGATIVE (NEGATIVE); GLUCOSE, URINE (UA) MANUAL NEGATIVE (NEGATIVE); KETONE, URINE MANUAL NEGATIVE (NEGATIVE); LEUKOCYTE ESTERASE, URINE MAN NEGATIVE (NEGATIVE); NITRITE, URINE MANUAL NEGATIVE (NEGATIVE); PROTEIN, URINE MANUAL NEGATIVE (NEGATIVE); SPECIFIC GRAVITY,URINE MANUAL 1.025 (1.002-1.035); UROBILINOGEN, URINE MANUAL NORMAL (NORMAL)
== END ==
LOC: M WUC 09:07
PROVIDERS: ATTEND Nurse Practitioner Family
DX: R63.4 Abnormal weight loss (principal); R19.7 Diarrhea, unspecified; R68.81 Early satiety

== ENCOUNTER → 2022-08-29 | Outpatient (CLI) | payer MEDICAID ==
[2022-08-29 13:37] LABS: HEMOGLOBIN A1c 5.6 % (4.0-6.0)
[2022-08-29 13:46] LABS: CREATININE, URINE 88.6 MG/DL
[2022-08-29 13:47] LABS: MAU/CREAT RATIO 7.9 MCG/MG (0.0-30.0)
[2022-08-29 14:16] LABS: ALBUMIN 3.6 G/DL (3.2-5.2); ALKALINE PHOSPHATASE 69 U/L (46-116); ALT/SGPT 82 U/L (7.0-40); AST/SGOT 51 U/L (<34); BILIRUBIN,TOTAL 0.4 MG/DL (0.3-1.2); BLOOD UREA NITROGEN 20 MG/DL (9-23); CALCIUM LEVEL 8.9 MG/DL (8.3-10.6); CARBON DIOXIDE LEVEL 25 MMOL/L (20-31); CHLORIDE LEVEL 104 MMOL/L (98-107); CHOLESTEROL LEVEL 200 MG/DL (<200); CHOLESTEROL RISK RATIO 3.48 (<5); CREATININE FOR GFR 0.72 MG/DL (0.55-1.30); GLOMERULAR FILTRATION RATE > 60.0 (>45); GLUCOSE, FASTING 98 MG/DL (74-106); HDL CHOLESTEROL 57.4 MG/DL (>40); LDL CHOLESTEROL 93.6 MG/DL (<100); NON-HDL-C 142.6 MG/DL; POTASSIUM SERUM 4.6 MMOL/L (3.5-5.1); SODIUM LEVEL 138 MMOL/L (136-145); TRIGLYCERIDES LEVEL 245 MG/DL (<150)
== END ==
LOC: M WUC 09:08
PROVIDERS: ATTEND Nurse Practitioner Family
DX: E11.9 Type 2 diabetes mellitus without complications (principal); E78.2 Mixed hyperlipidemia; R94.5 Abnormal results of liver function studies

== ENCOUNTER → 2022-09-02 | Outpatient (CLI) | payer MEDICAID ==
[2022-09-02 13:29] LABS: BASO # 0.1 10^3/uL (0.0-0.2); BASO % 0.9 % (0.0-1.0); EOS # 0.1 10^3/uL (0.0-0.5); EOS % 2.6 % (0.0-3.0); HEMATOCRIT 40.8 % (36.0-47.0); HEMOGLOBIN 13.2 g/dl (12.0-15.5); LYMPH # 1.1 10^3/uL (1.5-5.0); LYMPH % 20.7 % (24.0-44.0); MEAN CORPUSCULAR HEMOGLOBIN 29.3 pg (27.0-33.0); MEAN CORPUSCULAR HGB CONC 32.4 g/dl (32.0-36.5); MEAN CORPUSCULAR VOLUME 90.5 fl (80.0-96.0); MONO # 0.4 10^3/uL (0.0-0.8); MONO % 8.2 % (2.0-8.0); NEUTROPHILS # 3.6 10^3/uL (1.5-8.5); NEUTROPHILS % 67.2 % (36.0-66.0); PLATELET COUNT, AUTOMATED 196 10^3/uL (150-450); RED BLOOD COUNT 4.51 10^6/uL (4.00-5.40); WHITE BLOOD COUNT 5.4 10^3/uL (4.0-10.0)
[2022-09-02 13:56] LABS: BLOOD UREA NITROGEN 25 MG/DL (9-23); CALCIUM LEVEL 9.3 MG/DL (8.3-10.6); CARBON DIOXIDE LEVEL 24 MMOL/L (20-31); CHLORIDE LEVEL 103 MMOL/L (98-107); CREATININE FOR GFR 0.87 MG/DL (0.55-1.30); GLOMERULAR FILTRATION RATE > 60.0 (>45); GLUCOSE, FASTING 198 MG/DL (74-106); POTASSIUM SERUM 4.1 MMOL/L (3.5-5.1); SODIUM LEVEL 137 MMOL/L (136-145)
== END ==
LOC: M WUC 09:18
PROVIDERS: ATTEND Nurse Practitioner Family
DX: R19.7 Diarrhea, unspecified (principal)

== ENCOUNTER → 2022-10-03 | Outpatient (CLI) | payer MEDICAID | LOC: M WHC 08:23 | PROVIDERS: ATTEND Family Medicine | DX: Z12.31 Encounter for screening mammogram for malignant neoplasm of breast (principal); Z85.3 Personal history of malignant neoplasm of breast ==

== ENCOUNTER → 2022-11-11 | Outpatient (REF) | payer OTHER, MEDICAID | LOC: M SFHCDERM 17:32 | PROVIDERS: ATTEND Nurse Practitioner Family | DX: D18.01 Hemangioma of skin and subcutaneous tissue (principal) ==

== ENCOUNTER → 2022-12-09 | Outpatient (CLI) | payer OTHER, MEDICAID ==
[2022-12-09 09:42] LABS: ALBUMIN 3.7 G/DL (3.2-5.2); ALKALINE PHOSPHATASE 59 U/L (46-116); ALT/SGPT 34 U/L (7.0-40); AST/SGOT 10 U/L (<34); BILIRUBIN,TOTAL 0.2 MG/DL (0.3-1.2); BLOOD UREA NITROGEN 25 MG/DL (9-23); CARBON DIOXIDE LEVEL 25 MMOL/L (20-31); CHLORIDE LEVEL 105 MMOL/L (98-107); CHOLESTEROL LEVEL 189 MG/DL (<200); CHOLESTEROL RISK RATIO 3.04 (<5); CREATININE FOR GFR 0.71 MG/DL (0.55-1.30); GLOMERULAR FILTRATION RATE > 60.0 (>45); GLUCOSE, FASTING 92 MG/DL (74-106); LDL CHOLESTEROL 86.2 MG/DL (<100); POTASSIUM SERUM 4.1 MMOL/L (3.5-5.1); SODIUM LEVEL 137 MMOL/L (136-145); TOTAL PROTEIN 6.8 G/DL (5.7-8.2); TRIGLYCERIDES LEVEL 204 MG/DL (<150)
== END ==
LOC: M LAB 08:44
PROVIDERS: ATTEND Nurse Practitioner Family
DX: I10 Essential (primary) hypertension (principal)

== ENCOUNTER → 2023-05-17 | Outpatient (CLI) | payer OTHER ==
[~2023-05-17] MED LIST changes: +CELE0.09 PO; -CELE1CAP9 PO
[2023-05-17 10:11] LABS: BLOOD UREA NITROGEN 14 MG/DL (9-23); CARBON DIOXIDE LEVEL 28 MMOL/L (20-31); CHLORIDE LEVEL 104 MMOL/L (98-107); CREATININE FOR GFR 0.65 MG/DL (0.55-1.30); GLOMERULAR FILTRATION RATE > 60.0 (>45); GLUCOSE, FASTING 92 MG/DL (74-106); POTASSIUM SERUM 4.2 MMOL/L (3.5-5.1); SODIUM LEVEL 137 MMOL/L (136-145)
[2023-05-17 11:37] LABS: HEMOGLOBIN A1c 5.2 % (4.0-6.0)
== END ==
LOC: M LAB 08:53
PROVIDERS: ATTEND Nurse Practitioner Family
DX: E11.9 Type 2 diabetes mellitus without complications (principal)

== ENCOUNTER 2023-07-17 06:40 | Day surgery (SDC) | payer OTHER ==
[~2023-07-17] VITALS: Ht 165.1 cm; Wt 74.8 kg
[~2023-07-17 06:40] MED LIST changes: +CLOT1CRE71 TOP; +FLUC150T9 PO; +MELO15TA28 PO; +MURO5OIN OD; +PROBCAP14 PO; +SYST0.4D2 OP; +XALA0.007 OU; +[UNRECOGNIZED DRUG - OTHER] PO
[2023-07-17] MEDS ORDERED: SIMETHICONE 40MG/0.6ML DROPS 30ML As Ordered ONE (06:41)
[2023-07-17] MEDS ORDERED: LIDOCAINE 2% 100MG/5ML SDV (FOR ANES.) As Ordered ONE (07:01)
[2023-07-17] MEDS ORDERED: propofoL 200 MG/20 ML VIAL As Ordered ONE (07:01)
[2023-07-17] MEDS ORDERED: fentaNYL 100 MCG/2 ML INJECTION As Ordered ONE (07:04)
[2023-07-17] MEDS: NS 1,000 ML IV ONE (07:07)
[2023-07-17] MEDS ORDERED: GLYCOPYRROLATE INJ 0.2 MG/ML 2 ML VIAL As Ordered ONE (07:46)
[2023-07-17 08:05] VITALS: TEMP 98.2
[2023-07-17 08:20] VITALS: BP 146/82; O2SAT 99
== END 2023-07-17 08:29 | disposition home or self-care (01) ==
LOC: M OPP 06:40
PROVIDERS: ATTEND Internal Medicine Gastroenterology
DX: Z86.010 Personal history of colon polyps (principal); K57.30 Diverticulosis of large intestine without perforation or abscess without bleeding; K22.70 Barrett's esophagus without dysplasia; K31.A0 Gastric intestinal metaplasia, unspecified; E11.9 Type 2 diabetes mellitus without complications; Z79.02 Long term (current) use of antithrombotics/antiplatelets; Z79.1 Long term (current) use of non-steroidal anti-inflammatories (NSAID); Z79.891 Long term (current) use of opiate analgesic; Z79.899 Other long term (current) drug therapy; Z88.0 Allergy status to penicillin
CPT/HCPCS: 43239; 88305; G0105; J3010

== ENCOUNTER → 2023-10-12 | Outpatient (REF) | payer OTHER ==
[~2023-10-12] MED LIST changes: +DOXY-323 PO; -DOXY-443 PO
== END ==
LOC: M SFHCWAGY 10:44
PROVIDERS: ATTEND Nurse Practitioner Family
DX: Z12.4 Encounter for screening for malignant neoplasm of cervix (principal); N95.2 Postmenopausal atrophic vaginitis

== ENCOUNTER → 2023-10-12 | Outpatient (CLI) | payer OTHER | LOC: M WHC 07:50 | PROVIDERS: ATTEND Nurse Practitioner Family | DX: Z01.419 Encounter for gynecological examination (general) (routine) without abnormal findings (principal); Z12.31 Encounter for screening mammogram for malignant neoplasm of breast; Z12.39 Encounter for other screening for malignant neoplasm of breast; Z85.3 Personal history of malignant neoplasm of breast; N95.1 Menopausal and female climacteric states; N95.2 Postmenopausal atrophic vaginitis; Z11.51 Encounter for screening for human papillomavirus (HPV); Z79.1 Long term (current) use of non-steroidal anti-inflammatories (NSAID); Z79.84 Long term (current) use of oral hypoglycemic drugs; Z79.899 Other long term (current) drug therapy; Z87.891 Personal history of nicotine dependence; Z88.0 Allergy status to penicillin; Z90.49 Acquired absence of other specified parts of digestive tract; Z92.3 Personal history of irradiation; Z96.641 Presence of right artificial hip joint; Z96.653 Presence of artificial knee joint, bilateral | CPT/HCPCS: 77063; 77067; 87624; G0101; G0123; Q0091 ==

== ENCOUNTER → 2023-12-19 | Outpatient (CLI) | payer OTHER ==
[~2023-12-19] MED LIST changes: +OMEG-28; -OMEG1CAP85
[2023-12-19 10:42] LABS: HEMOGLOBIN A1c 5.3 % (4.0-6.0)
== END ==
LOC: M LAB 08:42
PROVIDERS: ATTEND Nurse Practitioner Family
DX: E11.9 Type 2 diabetes mellitus without complications (principal)

== ENCOUNTER → 2024-02-07 | Outpatient (REF) | payer OTHER, MEDICAID | LOC: M LAB REF 12:28 | PROVIDERS: ATTEND Nurse Practitioner Family | DX: R19.7 Diarrhea, unspecified (principal); R10.13 Epigastric pain ==

== ENCOUNTER 2024-03-26 16:02 | Outpatient (CLI) | payer OTHER ==
[~2024-03-26] VITALS: Ht 165.1 cm; Wt 95.0 kg
[2024-03-26 16:00] VITALS: BP 149/77; O2SAT 99
[~2024-03-26 16:02] MED LIST changes: -DOXY-323 PO; +DOXY-441 PO
[2024-03-26] MEDS: FECAL MICROBIOTA, LIVE-JSLM 150ML BAG (REBYOTA) RC ONE (16:40)
== END 2024-03-26 16:45 ==
LOC: M INFU 16:02
PROVIDERS: ATTEND Physician Assistant
DX: A04.72 Enterocolitis due to Clostridium difficile, not specified as recurrent (principal); Z88.0 Allergy status to penicillin
CPT/HCPCS: G0455; J1440

== ENCOUNTER 2024-04-24 09:08 | Day surgery (SDC) | payer OTHER ==
[~2024-04-24] VITALS: Ht 165.1 cm; Wt 72.6 kg
[~2024-04-24 09:08] MED LIST changes: +D-50CAP PO; +LISI10TA22 PO; +MELO7.5T35 PO; +MIDAZOLAM INJ 2MG/2ML VIAL As Ordered ONE; +OMEG-28 PO; +PHENYLEPHRINE 10% OPHTH SOL 5ML OD PRN; +PRES10CA2 PO; -VENL150C43; +VENL150C43 PO; +fentaNYL 100 MCG/2 ML INJECTION As Ordered ONE
[2024-04-24] MEDS: LIDOCAINE 3.5 % 1ML OPHTH TOPICAL GEL OU ONE (09:41)
[2024-04-24] MEDS: OFLOXACIN 0.3 % (OCUFLOX) OPTH SOL 5ML OD ONE (09:41)
[2024-04-24] MEDS: ATROPINE SULFATE 1% OPHTH SOLN 2ML BTL OD SCH (09:42)
[2024-04-24] MEDS: TROPICAMIDE 1% OPHTH SOLN 15ML OD SCH (09:42)
[2024-04-24] MEDS: PHENYLEPHRINE 2.5% OPHTH SOL 2ML OD SCH (09:42)
[2024-04-24] MEDS: BSS IRRIG/VANCO(10MG)/TOBRA(5MG)/EPINEPH(1:1000-0.5CC)500ML BAG-ORONLY As Ordered ONE (10:20)
[2024-04-24] MEDS: LIDOCAINE 1% SDV 5ML VIAL As Ordered ONE (10:20)
[2024-04-24] MEDS: PROVISC 10 MG/ML 0.85ML SYRINGE As Ordered ONE (10:35)
[2024-04-24] MEDS: CEFUROXIME 1MG/0.1ML INTRACAMERAL INJ As Ordered ONE (10:35)
[2024-04-24 10:39] VITALS: BP 112/60; TEMP 97.2; O2SAT 97
== END 2024-04-24 10:54 | disposition home or self-care (01) ==
LOC: M SDC 09:08
PROVIDERS: ATTEND Ophthalmology
DX: H25.9 Unspecified age-related cataract (principal); H40.1111 Primary open-angle glaucoma, right eye, mild stage; E11.9 Type 2 diabetes mellitus without complications; Z88.0 Allergy status to penicillin; Z79.899 Other long term (current) drug therapy; Z87.891 Personal history of nicotine dependence
CPT/HCPCS: 66991; 92015; A4649; C1783; J0697; J2250; J3010; V2788

== ENCOUNTER → 2024-04-26 | Outpatient (CLI) | payer OTHER ==
[~2024-04-26] MED LIST changes: -MIDAZOLAM INJ 2MG/2ML VIAL As Ordered ONE; -PHENYLEPHRINE 10% OPHTH SOL 5ML OD PRN; -fentaNYL 100 MCG/2 ML INJECTION As Ordered ONE
[2024-04-26 08:49] LABS: BASO # 0.1 10^3/uL (0.0-0.2); EOS # 0.1 10^3/uL (0.0-0.5); EOS % 1.8 % (0.0-3.0); HEMATOCRIT 40.7 % (36.0-47.0); HEMOGLOBIN 13.9 g/dl (12.0-15.5); LYMPH # 1.2 10^3/uL (1.5-5.0); LYMPH % 19.8 % (24.0-44.0); MEAN CORPUSCULAR HEMOGLOBIN 30.7 pg (27.0-33.0); MEAN CORPUSCULAR HGB CONC 34.2 g/dl (32.0-36.5); MEAN CORPUSCULAR VOLUME 89.8 fl (80.0-96.0); MONO # 0.6 10^3/uL (0.0-0.8); MONO % 9.6 % (2.0-8.0); NEUTROPHILS % 67.5 % (36.0-66.0); PLATELET COUNT, AUTOMATED 257 10^3/uL (150-450); RED BLOOD COUNT 4.53 10^6/uL (4.00-5.40)
[2024-04-26 09:18] LABS: ALBUMIN 3.5 G/DL (3.2-5.2); ALKALINE PHOSPHATASE 55 U/L (35-104); ALT/SGPT 39 U/L (7.0-40); AST/SGOT 22 U/L (<34); BILIRUBIN,TOTAL 0.5 MG/DL (0.3-1.2); BLOOD UREA NITROGEN 25 MG/DL (9-23); CARBON DIOXIDE LEVEL 27 MMOL/L (20-31); CHLORIDE LEVEL 104 MMOL/L (98-107); CREATININE FOR GFR 0.65 MG/DL (0.55-1.30); GLOMERULAR FILTRATION RATE > 60.0 (>45); GLUCOSE, FASTING 104 MG/DL (74-106); MAGNESIUM LEVEL 1.5 MG/DL (1.8-2.4); SODIUM LEVEL 137 MMOL/L (136-145); TOTAL PROTEIN 7.2 G/DL (5.7-8.2)
[2024-04-26 09:20] LABS: FREE T4 1.28 NG/DL (0.89-1.76)
== END ==
LOC: M LAB 08:15
PROVIDERS: ATTEND Nurse Practitioner Family
DX: I49.3 Ventricular premature depolarization (principal); E07.9 Disorder of thyroid, unspecified

== ENCOUNTER → 2024-05-10 | Outpatient (CLI) | payer OTHER ==
[2024-05-10 09:09] LABS: BASO # 0.1 10^3/uL (0.0-0.2); BASO % 0.9 % (0.0-1.0); EOS # 0.3 10^3/uL (0.0-0.5); HEMATOCRIT 38.2 % (36.0-47.0); HEMOGLOBIN 12.6 g/dl (12.0-15.5); LYMPH # 1.1 10^3/uL (1.5-5.0); LYMPH % 15.1 % (24.0-44.0); MEAN CORPUSCULAR HEMOGLOBIN 30.7 pg (27.0-33.0); MEAN CORPUSCULAR VOLUME 92.9 fl (80.0-96.0); MONO # 0.6 10^3/uL (0.0-0.8); MONO % 8.2 % (2.0-8.0); NEUTROPHILS % 71.4 % (36.0-66.0); PLATELET COUNT, AUTOMATED 203 10^3/uL (150-450); RED BLOOD COUNT 4.11 10^6/uL (4.00-5.40)
[2024-05-10 09:27] LABS: ALBUMIN 3.4 G/DL (3.2-5.2); ALKALINE PHOSPHATASE 52 U/L (35-104); ALT/SGPT 32 U/L (7.0-40); AST/SGOT 21 U/L (<34); BILIRUBIN,TOTAL 0.3 MG/DL (0.3-1.2); BLOOD UREA NITROGEN 31 MG/DL (9-23); CALCIUM LEVEL 9.8 MG/DL (8.3-10.6); CARBON DIOXIDE LEVEL 26 MMOL/L (20-31); CHLORIDE LEVEL 108 MMOL/L (98-107); CHOLESTEROL LEVEL 171 MG/DL (<200); CHOLESTEROL RISK RATIO 2.29 (<5); CREATININE FOR GFR 0.78 MG/DL (0.55-1.30); GLOMERULAR FILTRATION RATE > 60.0 (>45); GLUCOSE, FASTING 88 MG/DL (74-106); HDL CHOLESTEROL 74.4 MG/DL (>40); LDL CHOLESTEROL 68.4 MG/DL (<100); NON-HDL-C 96.6 MG/DL; POTASSIUM SERUM 4.5 MMOL/L (3.5-5.1); SODIUM LEVEL 139 MMOL/L (136-145); TOTAL PROTEIN 6.6 G/DL (5.7-8.2); TRIGLYCERIDES LEVEL 141 MG/DL (<150)
[2024-05-10 09:27] LABS: CREATININE, URINE 69.8 MG/DL; MALB URINE SIEMENS < 3.0 MG/L
[2024-05-10 09:30] LABS: TOTAL 25(OH) VITAMIN D 98.7 NG/ML (20.0-100.0)
[2024-05-10 09:48] LABS: HEMOGLOBIN A1c 5.1 % (4.0-6.0)
== END ==
LOC: M LAB 08:07
PROVIDERS: ATTEND Nurse Practitioner Family
DX: I10 Essential (primary) hypertension (principal)

== ENCOUNTER 2024-05-22 08:42 | Day surgery (SDC) | payer OTHER ==
[~2024-05-22] VITALS: Ht 165.1 cm; Wt 72.6 kg
[~2024-05-22 08:42] MED LIST changes: +MIDAZOLAM INJ 2MG/2ML VIAL As Ordered ONE; +PHENYLEPHRINE 10% OPHTH SOL 5ML OS PRN
[2024-05-22] MEDS: LIDOCAINE 3.5 % 1ML OPHTH TOPICAL GEL OU ONE (09:30)
[2024-05-22] MEDS: OFLOXACIN 0.3 % (OCUFLOX) OPTH SOL 5ML OS ONE (09:30)
[2024-05-22] MEDS: PHENYLEPHRINE 2.5% OPHTH SOL 2ML OS SCH (09:39)
[2024-05-22] MEDS: TROPICAMIDE 1% OPHTH SOLN 15ML OS SCH (09:39)
[2024-05-22] MEDS: CYCLOPENTOLATE 1% OPHTH SOLN 2ML BTL OS SCH (09:39)
[2024-05-22] MEDS: LIDOCAINE 1% SDV 5ML VIAL As Ordered ONE (12:05)
[2024-05-22] MEDS: MOXIFLOXACIN 0.6MG/0.4ML INTRAOCULAR SYRINGE As Ordered ONE (12:05)
[2024-05-22] MEDS: BSS IRRIG/VANCO(10MG)/TOBRA(5MG)/EPINEPH(1:1000-0.5CC)500ML BAG-ORONLY As Ordered ONE (12:05)
[2024-05-22 12:25] VITALS: BP 133/65; TEMP 97.7; O2SAT 97
== END 2024-05-22 12:46 | disposition home or self-care (01) ==
LOC: M SDC 08:42
PROVIDERS: ATTEND Ophthalmology
DX: H25.9 Unspecified age-related cataract (principal); H40.1121 Primary open-angle glaucoma, left eye, mild stage; E11.9 Type 2 diabetes mellitus without complications; Z88.0 Allergy status to penicillin; Z79.899 Other long term (current) drug therapy; Z87.891 Personal history of nicotine dependence; Z98.41 Cataract extraction status, right eye
CPT/HCPCS: 66991; 92015; C1783; J2250; V2788

== ENCOUNTER → 2024-06-11 | Outpatient (CLI) | payer OTHER ==
[~2024-06-11] MED LIST changes: -MIDAZOLAM INJ 2MG/2ML VIAL As Ordered ONE; -PHENYLEPHRINE 10% OPHTH SOL 5ML OS PRN
== END ==
LOC: M LAB 10:35
PROVIDERS: ATTEND Nurse Practitioner Family
DX: E83.42 Hypomagnesemia (principal)

== ENCOUNTER 2024-09-12 11:39 | Emergency (ER) | payer OTHER ==
[~2024-09-12] VITALS: Ht 167.6 cm; Wt 71.9 kg
[2024-09-12 11:44] VITALS: TEMP 96.8
[2024-09-12 12:17] LABS: BASO # 0.1 10^3/uL (0.0-0.2); BASO % 0.5 % (0.0-1.0); EOS # 0.1 10^3/uL (0.0-0.5); EOS % 0.5 % (0.0-3.0); HEMATOCRIT 37.8 % (36.0-47.0); HEMOGLOBIN 13.2 g/dl (12.0-15.5); LYMPH # 0.7 10^3/uL (1.5-5.0); LYMPH % 5.9 % (24.0-44.0); MEAN CORPUSCULAR HEMOGLOBIN 30.6 pg (27.0-33.0); MEAN CORPUSCULAR HGB CONC 34.9 g/dl (32.0-36.5); MEAN CORPUSCULAR VOLUME 87.5 fl (80.0-96.0); MONO # 0.4 10^3/uL (0.0-0.8); MONO % 3.3 % (2.0-8.0); NEUTROPHILS # 9.9 10^3/uL (1.5-8.5); NEUTROPHILS % 89.3 % (36.0-66.0); PLATELET COUNT, AUTOMATED 269 10^3/uL (150-450); RED BLOOD COUNT 4.32 10^6/uL (4.00-5.40); WHITE BLOOD COUNT 11.1 10^3/uL (4.0-10.0)
[2024-09-12 12:58] LABS: LIPASE 50 U/L (12-53)
[2024-09-12 13:00] LABS: ALBUMIN 3.8 G/DL (3.2-5.2); ALKALINE PHOSPHATASE 71 U/L (35-104); ALT/SGPT 54 U/L (7.0-40); AST/SGOT 36 U/L (<34); BILIRUBIN,DIRECT 0.1 MG/DL (<0.4); BILIRUBIN,TOTAL 0.5 MG/DL (0.3-1.2); BLOOD UREA NITROGEN 24 MG/DL (9-23); CALCIUM LEVEL 9.7 MG/DL (8.3-10.6); CARBON DIOXIDE LEVEL 20 MMOL/L (20-31); CHLORIDE LEVEL 101 MMOL/L (98-107); CREATININE FOR GFR 0.58 MG/DL (0.55-1.30); GLOMERULAR FILTRATION RATE > 60.0 (>45); GLUCOSE, FASTING 180 MG/DL (74-106); POTASSIUM SERUM 3.7 MMOL/L (3.5-5.1); SODIUM LEVEL 136 MMOL/L (136-145); TOTAL PROTEIN 7.3 G/DL (5.7-8.2)
[2024-09-12] MEDS: ONDANSETRON 4MG 2ML VIAL IV ONE (14:38)
[2024-09-12] MEDS: MORPHINE 4 MG/ML 1ML VIAL IV ONE ×2 (14:38→16:20)
[2024-09-12] MEDS ORDERED: ISOVUE-370 76% 100ML VIAL As Ordered ONE (14:58)
[2024-09-12] MEDS ORDERED: ONDA-282 PO (17:07)
[2024-09-12] MEDS ORDERED: OXYC1TAB23 PO (17:07)
[2024-09-12 17:15] VITALS: BP 146/80; O2SAT 98
== END 2024-09-12 17:50 | disposition home or self-care (01) ==
LOC: M ED 11:39
DX: K57.92 Diverticulitis of intestine, part unspecified, without perforation or abscess without bleeding (principal); K76.0 Fatty (change of) liver, not elsewhere classified; I10 Essential (primary) hypertension; E78.5 Hyperlipidemia, unspecified; F12.10 Cannabis abuse, uncomplicated; Z88.0 Allergy status to penicillin; Z79.84 Long term (current) use of oral hypoglycemic drugs; Z79.899 Other long term (current) drug therapy
CPT/HCPCS: 74177; 80048; 80076; 83690; 85025; 96374; 96375; 99284; J2405; Q9967

== ENCOUNTER → 2024-09-19 | Outpatient (CLI) | payer OTHER ==
[~2024-09-19] MED LIST changes: +ONDA-282 PO; +OXYC1TAB23 PO
[2024-09-19 10:03] LABS: ALBUMIN 3.5 G/DL (3.2-5.2); ALKALINE PHOSPHATASE 64 U/L (35-104); ALT/SGPT 42 U/L (7.0-40); AST/SGOT 31 U/L (<34); BILIRUBIN,TOTAL 0.4 MG/DL (0.3-1.2); BLOOD UREA NITROGEN 17 MG/DL (9-23); CALCIUM LEVEL 9.4 MG/DL (8.3-10.6); CARBON DIOXIDE LEVEL 29 MMOL/L (20-31); CHLORIDE LEVEL 103 MMOL/L (98-107); CHOLESTEROL LEVEL 151 MG/DL (<200); CREATININE FOR GFR 0.64 MG/DL (0.55-1.30); GLOMERULAR FILTRATION RATE > 90.0 (>45); GLUCOSE, FASTING 92 MG/DL (74-106); IRON (FE) 89 UG/DL (50-170); LDL CHOLESTEROL 47.8 MG/DL (<100); MAGNESIUM LEVEL 1.7 MG/DL (1.8-2.4); PERCENT SATURATION 25.5 % (13.2-45.0); POTASSIUM SERUM 4.1 MMOL/L (3.5-5.1); SODIUM LEVEL 141 MMOL/L (136-145); TOTAL IRON BINDING CAPACITY 349 UG/DL (250-425); TOTAL PROTEIN 6.8 G/DL (5.7-8.2); TRIGLYCERIDES LEVEL 226 MG/DL (<150)
[2024-09-19 10:04] LABS: BASO % 0.6 % (0.0-1.0); EOS # 1.3 10^3/uL (0.0-0.5); EOS % 19.5 % (0.0-3.0); LYMPH # 1.1 10^3/uL (1.5-5.0); LYMPH % 15.4 % (24.0-44.0); MEAN CORPUSCULAR HEMOGLOBIN 30.1 pg (27.0-33.0); MEAN CORPUSCULAR HGB CONC 33.3 g/dl (32.0-36.5); MEAN CORPUSCULAR VOLUME 90.3 fl (80.0-96.0); MONO # 0.5 10^3/uL (0.0-0.8); MONO % 7.6 % (2.0-8.0); NEUTROPHILS # 3.9 10^3/uL (1.5-8.5); NEUTROPHILS % 56.3 % (36.0-66.0); PLATELET COUNT, AUTOMATED 267 10^3/uL (150-450); RED BLOOD COUNT 4.32 10^6/uL (4.00-5.40); WHITE BLOOD COUNT 6.9 10^3/uL (4.0-10.0)
[2024-09-19 10:05] LABS: FERRITIN 127.8 NG/ML (7.3-270.7); HEPATITIS B SURFACE ANTIBODY POSITIVE (POSITIVE)
[2024-09-19 10:11] LABS: HEMOGLOBIN A1c 4.8 % (4.0-6.0)
[2024-09-19 10:16] LABS: HEPATITIS B SURFACE ANTIGEN NEGATIVE (NEGATIVE)
[2024-09-19 10:38] LABS: HEPATITIS C VIRUS ABY INDEX 0.02 INDEX (<0.8)
[2024-09-20 08:08] LABS: HBVCOREDIFF1 Negative (Negative); HBVCOREDIFF2 Negative (Negative)
== END ==
LOC: M LAB 08:32
PROVIDERS: ATTEND Nurse Practitioner Family
DX: R74.01 Elevation of levels of liver transaminase levels (principal); E11.9 Type 2 diabetes mellitus without complications

== ENCOUNTER → 2024-10-11 | Outpatient (CLI) | payer OTHER | LOC: M RAD 07:28 | PROVIDERS: ATTEND Nurse Practitioner Family | DX: R74.01 Elevation of levels of liver transaminase levels (principal); D73.89 Other diseases of spleen ==

== ENCOUNTER → 2024-10-16 | Outpatient (CLI) | payer OTHER | LOC: M WHC 07:41 | PROVIDERS: ATTEND Nurse Practitioner Family | DX: Z12.31 Encounter for screening mammogram for malignant neoplasm of breast (principal) ==

== ENCOUNTER → 2024-12-20 | Outpatient (CLI) | payer OTHER ==
[~2024-12-20] MED LIST changes: +LISI40TA10 PO; -LISI40TA4 PO; -PRAV40TA2 PO; +PRAV40TA85 PO
[2024-12-20 08:57] LABS: BASO # 0.1 10^3/uL (0.0-0.2); BASO % 0.9 % (0.0-1.0); EOS # 0.3 10^3/uL (0.0-0.5); EOS % 5.7 % (0.0-3.0); LYMPH # 0.9 10^3/uL (1.5-5.0); LYMPH % 15.7 % (24.0-44.0); MONO # 0.5 10^3/uL (0.0-0.8); MONO % 9.1 % (2.0-8.0); NEUTROPHILS # 4.0 10^3/uL (1.5-8.5); NEUTROPHILS % 68.1 % (36.0-66.0); PLATELET COUNT, AUTOMATED 283 10^3/uL (150-450)
[2024-12-20 09:13] LABS: CREATININE, URINE 63.3 MG/DL; MALB URINE SIEMENS < 3.0 MG/L
[2024-12-20 09:32] LABS: ESTIMATED AVERAGE GLUCOSE 108.0 MG/DL (60-110)
[2024-12-20 09:49] LABS: ALT/SGPT 27 U/L (7.0-40); AST/SGOT 29 U/L (<34); CALCIUM LEVEL 9.2 MG/DL (8.3-10.6); CARBON DIOXIDE LEVEL 26 MMOL/L (20-31); CHLORIDE LEVEL 104 MMOL/L (98-107); CHOLESTEROL LEVEL 161 MG/DL (<200); CHOLESTEROL RISK RATIO 2.77 (<5); CREATININE FOR GFR 0.73 MG/DL (0.55-1.30); GLOMERULAR FILTRATION RATE > 90.0 (>45); LDL CHOLESTEROL 68.5 MG/DL (<100); NON-HDL-C 102.9 MG/DL; POTASSIUM SERUM 4.5 MMOL/L (3.5-5.1); SODIUM LEVEL 141 MMOL/L (136-145); TRIGLYCERIDES LEVEL 172 MG/DL (<150)
[2024-12-20 09:52] LABS: TOTAL 25(OH) VITAMIN D 124.0 NG/ML (20.0-100.0)
== END ==
LOC: M LAB 07:52
PROVIDERS: ATTEND Nurse Practitioner Family
DX: I10 Essential (primary) hypertension (principal); E11.9 Type 2 diabetes mellitus without complications; E78.2 Mixed hyperlipidemia; E55.9 Vitamin D deficiency, unspecified

== ENCOUNTER 2025-03-04 13:30 | Emergency (ER) | payer OTHER ==
[~2025-03-04] VITALS: Ht 165.1 cm; Wt 71.6 kg
[2025-03-04] MEDS ORDERED: MORPHINE 4 MG/ML 1 ML VIAL IV PRN (14:00)
[2025-03-04] MEDS: NS (Normal Saline) 0.9% 1,000 ML IV SCH (14:20)
[2025-03-04 16:27] VITALS: BP 149/78; TEMP 98.6; O2SAT 98
== END 2025-03-04 16:34 | disposition home or self-care (01) ==
LOC: M ED 13:30 → EDBD 13:30 → M ED 16:34
DX: S73.014A Posterior dislocation of right hip, initial encounter (principal); Y92.9 Unspecified place or not applicable; Y93.9 Activity, unspecified; Y99.0 Civilian activity done for income or pay; W19.XXXA Unspecified fall, initial encounter; E11.9 Type 2 diabetes mellitus without complications; I10 Essential (primary) hypertension; E78.5 Hyperlipidemia, unspecified; C50.919 Malignant neoplasm of unspecified site of unspecified female breast; Z96.651 Presence of right artificial knee joint; Z88.0 Allergy status to penicillin; Z79.84 Long term (current) use of oral hypoglycemic drugs; Z79.899 Other long term (current) drug therapy

== ENCOUNTER 2025-03-11 16:48 | Emergency (ER) | payer OTHER ==
[~2025-03-11] VITALS: Ht 165.1 cm; Wt 71.6 kg
[2025-03-11] MEDS: NS (Normal Saline) 0.9% 1,000 ML IV SCH ×2 (18:13)
[2025-03-11] MEDS: NS (Normal Saline) 0.9% 1,000 ML IV ONE (18:13)
[2025-03-11 20:00] VITALS: O2SAT 97
[2025-03-11 20:18] VITALS: BP 163/87
== END 2025-03-11 20:36 | disposition home or self-care (01) ==
LOC: M ED 16:48 → EDBD 16:48 → M ED 20:36
DX: T84.020A Dislocation of internal right hip prosthesis, initial encounter (principal); I10 Essential (primary) hypertension; E78.5 Hyperlipidemia, unspecified; F41.9 Anxiety disorder, unspecified; F32.A Depression, unspecified; Z88.0 Allergy status to penicillin; Z79.84 Long term (current) use of oral hypoglycemic drugs; Z79.899 Other long term (current) drug therapy

== ENCOUNTER → 2025-03-19 | Outpatient (CLI) | payer OTHER ==
[2025-03-19 12:34] LABS: BASO # 0.1 10^3/uL (0.0-0.2); BASO % 0.9 % (0.0-1.0); EOS # 0.3 10^3/uL (0.0-0.5); EOS % 4.3 % (0.0-3.0); LYMPH # 1.2 10^3/uL (1.5-5.0); LYMPH % 18.6 % (24.0-44.0); MONO # 0.6 10^3/uL (0.0-0.8); MONO % 8.7 % (2.0-8.0); NEUTROPHILS # 4.3 10^3/uL (1.5-8.5); NEUTROPHILS % 67.3 % (36.0-66.0); PLATELET COUNT, AUTOMATED 300 10^3/uL (150-450)
[2025-03-19 12:40] LABS: ERYTHROCYTE SEDIMENTATION RATE 25 mm/hr (0-30)
[2025-03-19 12:57] LABS: C REACTIVE PROTEIN QUANTITATIV < 0.50 MG/DL (<1.0)
[2025-03-19 13:28] LABS: ESTIMATED AVERAGE GLUCOSE 103.0 MG/DL (60-110)
== END ==
LOC: M LAB 09:02
PROVIDERS: ATTEND Orthopaedic Surgery
DX: Z01.812 Encounter for preprocedural laboratory examination (principal); M25.551 Pain in right hip

== ENCOUNTER → 2025-05-12 | Outpatient (CLI) | payer OTHER | LOC: M RAD 08:38 | PROVIDERS: ATTEND Nurse Practitioner Family | DX: D73.89 Other diseases of spleen (principal) ==